=== PATIENT | female | born 1945 | race Caucasian/White ===

== ENCOUNTER → 2017-09-23 07:59 | Outpatient (CLI) | payer MEDICARE, SELFPAY ==
--- NOTE | 2017-09-23 08:05 | MM_ITS ---
MM Dig screening mamm BI w/CAD CAD Screening ORDERING PHYSICIAN : Alis Umana PATIENT AGE: 72 years GENDER: Female COMPARISON: Previous mammograms: January 26, 2017, July 2015, INDICATION: Bilateral breast reduction. No hormones. No urinary complaints. Noncontributory family history. TECHNIQUE: Standard CC and MLO images were obtained. R2 CAD reviewed. FINDINGS: Moderate RIGHT BREAST:The smooth wall round mass at the inferior right breast no significant change since 2017 normal prior 2015 mammogram.. Well-defined smooth wall mass 13.5 mm mm diameter most certainly benign fibroadenoma. . Follow up right mammogram 1 year adequate LEFT BREAST:There is been scant increased enlargement of the solid nodule at the 12-1 o'clock position at the superior left breast. 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 Suggest follow-up ultrasound. This area is been previously evaluated ultrasound and mammography 2014 but given there has slight additional girth the main may want to again offer or Consider proceeding to a ultrasound-guided biopsy of this area above for definitive diagnosis.. This area measures 23 mm AP x 17 mm transverse on today's study. Scant increased girth since prior study Minor density at the medial left breast is stable. .. -------- IMPRESSION: 1. LEFT BREAST: Subtle incremental size & girth of slightly lobulated mass ( most likely fibroadenoma) at the superior right breast, 12:30 position. This now measures up to 2.3 cm. X nearly 1.7 cm , reflecting only scant progression since 2014. . .. Suggest follow-up ultrasound to further evaluate; ... Or consider proceeding directly to ultrasound-guided biopsy given its incremental progression in size since 2014 , now measuring up to 2.3 cm , along with the the slight lobulated character. Offering biopsy the patient so as to fully confirm benign fibroadenoma as suspected if so desired.. 2... RIGHT BREAST.: . Stable 13.5 mm smooth round mass inferior right breast. Can be followed 1 year. BI-RADS Category: 0 Need Additional Imaging Evaluaiton. RECOMMENDED FOLLOW-UP: IMM - IMMEDIATE FOLLOW-UP RECOMMENDED Ultrasound left breast ; or consider ultrasound-guided biopsy suggested (A letter has been sent to the patient regarding results of the study.)
== END ==
PROVIDERS: Family Provider Internal Medicine Adolescent Medicine; PCP Nurse Practitioner Family; Visit Provider Nurse Practitioner Family
DX: Z12.31 Encounter for screening mammogram for malignant neoplasm of breast (principal)
CPT/HCPCS: 77067

== ENCOUNTER → 2017-10-06 14:05 | Outpatient (CLI) | payer MEDICARE, SELFPAY ==
--- NOTE | 2017-10-06 14:10 | US_ITS ---
US breast LT complete ORDERING PHYSICIAN : Alis Umana PATIENT AGE: 72 years GENDER: Female COMPARISON: Previous mammograms: 09/23/2017 & 07/23/2015. Also previous breast ultrasound from December 2014 INDICATION: Breast mass left breast TECHNIQUE: Ultrasound entire left breast including axillary survey LEFT BREAST ULTRASOUND: Including axillary survey Today's study is compared to multiple previous studies.. There is been a long-standing solid mass at the left breast. However it appears incrementally larger butMost likely a slowly progressing benign fibroadenoma.. On today's ultrasound this measures up to 2.2 cm length x 1.4 cm. I believe at this point it does warrant biopsy for further evaluation to fully characterize. Warrants definitive histologic evaluation There is a long thin cyst at 7:00 there is measuring length x 14 mm length x 3 mm AP. Not of concern. Survey of the axillary region reveals no significant appearing findings. Ill-defined benign axillary lymph nodes. The largest 2.35 cm length. IMPRESSION: 2.2 cm solid mass at the 12-1 o'clock position of left breast. -correlates with density on recent mammography Most likely this benign fibroadenoma. However given slowly increasing size & overall appearance would suggest ultrasound-guided biopsy for definitive histologic evaluation. BI-RADS Category: 4 low Suspicious Abnormality-Biopsy Considered-. RECOMMENDED FOLLOW-UP: BIO - BIOPSY RECOMMENDED 4A- this is a low suspicion solid mass, probable fibroadenoma,, but warrants ultrasound-guided biopsy. (A letter has been sent to the patient regarding results of the study.)
== END ==
PROVIDERS: Family Provider Internal Medicine Adolescent Medicine; PCP Nurse Practitioner Family; Visit Provider Nurse Practitioner Family
DX: R92.8 Other abnormal and inconclusive findings on diagnostic imaging of breast (principal)
CPT/HCPCS: 76641

== ENCOUNTER → 2017-11-08 09:45 | Outpatient (CLI) | payer MEDICARE, SELFPAY ==
--- NOTE | 2017-11-08 | MM_ITS ---
US mammotome bx LT, US breast LT complete, US organ site (breast), MM Dig mamm DX unilat LT CAD, postbiopsy ULTRASOUND LEFT BREAST ____ MAMMOTOME VACUUM ASSISTED CORE BIOPSY with clip placement Ordering Physician: Dimitri aMry MD Patient Age: 72 years: Female HISTORY: ITS.REASON: breast lesion progressive enlarging left breast mass. Previous 10/06/2017 ultrasound and previous 09/23/2017 2018 mammogram left breast 4 comparison .. FINDINGS AND PROCEDURE: ---ULTRASOUND LEFT BREAST:------- The initial ultrasound again shows the dominant 2.2 cm length X near 1.4 cm AP cm mass at 12:00 left breast. This hypoechoic solid or semisolid mass is a large with time and was targeted for today's biopsy.... Its position was confirmed. The best route for biopsy was determined by Dr. August and technologist MW. ------ULTRASOUND-GUIDED MAMMOTOME Bx w clip placement left breast ----- Patient was received 10 mg of Valium by mouth prior to this procedure for comfort and mild sedation. Following sterile preparation & local skin anesthesia and deep Xylocaine anesthetic placement we proceeded with subsequently mammotome biopsy Small 2 mm incision was made in the skin by Dr. August after additional local skin anesthesia was placed,. Thereafter deep anesthetic placement posterior to the lesion and about the lesion performed. The 12-gauge mammotome needle was then passed under ultrasound guidance. Biopsy needle placed beneath posterior/ inferior aspect of the nodule and multiple biopsies were obtained removing significant portion/and appear to be removal of majority portion of this this nodule by ultrasound. Patient tolerated procedure well.. At the end of procedure small clip with collagen plug was placed at the biopsy site. *I would note the material obtained was somewhat sticky fibrinoid/mucoid material rather than anticipated homogeneous firm white tissue as typically encounter with intact fibroadenoma. Possibly This is could be a degenerating partially necrotic fibroadenoma possibly versus some other process . All Specimen sent for pathology. 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 No comment regarding fibroadenoma. Thus this may account for the above ) ========= DIAGNOSTIC LEFT MAMMOGRAM-POST BIOPSY Left mammogram 90 degree, MLO and cc views were performed. A smaller lower density ovoid mass at the upper outer quadrant is seen but much much less dense then prebiopsy. We do see a ghostlike residuals of prior mass which likely reflects fluid and/or blood filling this previously biopsied and evacuated void. We do not see as much air or gas here postbiopsy as can be typically encounter with a mammotome biopsy. Only very minimal air along the tract and toward biopsy site... The metallic marker clip is at the anterior inferior margin of this mass. IMPRESSION: 1. The enlarging 2.2 cm length x nearly 1.4 cm AP mass at the 12 o'clock position left breast is identified with initial ultrasound. 2. Subsequent mammotome biopsy performed removing majority of this mass. Metallic marker Clip placed at biopsy region 3. Patient tolerated the procedure overall fairly well 4. Quadrant ultrasound biopsy it appears the vast majority of this mass was removed with stereotactic biopsy.. On the post biopsy mammogram a significant lower density ovoid more ghostlike area persisting at site of previous mass-. Likely reflects reaccumulation of fluid or blood within the evacuated, biopsy mass void. ... However because of this I would suggest 6 month follow-up for ongoing evaluation. 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
== END ==
PROVIDERS: Family Provider Internal Medicine Adolescent Medicine; PCP Nurse Practitioner Family; Visit Provider Surgery
DX: N63.21 Unspecified lump in the left breast, upper outer quadrant
CPT/HCPCS: 19083; 76641; 76942; 77065; 88305; 88342; C2618

== ENCOUNTER → 2017-11-29 15:25 | Outpatient (CLI) | payer MEDICARE, SELFPAY ==
[2017-11-29 15:52] LABS: Basophils % 0.6 % (0.1-2.0); Eosinophils # 0.1 K/mm3 (0.0-0.4); Eosinophils % 1.8 % (0.1-12.0); Hematocrit 45.5 % (37.0-47.0); Lymphocytes # 1.7 K/mm3 (0.7-4.5); Lymphocytes % 27.6 K/mm3 (10-50); Mean Corpuscular HGB Conc 32.9 g/dL (31.8-35.4); Mean Corpuscular Hemoglobin 32.3 pg (27.0-31.2); Mean Corpuscular Volume 97.9 fl (81-99); Mean Platelet Volume 7.1 fl (7.4-10.4); Monocytes # 0.3 K/mm3 (0.1-1.0); Monocytes % 5.6 % (1.7-9.3); Neutrophils # 3.9 K/mm3 (1.8-7.8); Neutrophils % 64.3 % (37.0-80.0); Platelet Count 270 K/mm3 (142-424); Red Blood Count 4.65 M/mm3 (4.20-5.40); Red Cell Distribution Width 15.6 % (11.5-17.5)
[2017-11-29 17:16] LABS: Blood Urea Nitrogen 11 mg/dL (7-18); Carbon Dioxide 31 mmol/L (21.0-32.0); Chloride 102 mmol/L (98-107); Creatinine,Serum 0.76 mg/dL (0.55-1.02); Estimated Glomerular Filt Rate 75 ml/min (>60); GFR (African American) 91 ML/MIN (>60); Glucose 102 mg/dL (74-106); Sodium 142 mmol/L (136-145)
== END ==
PROVIDERS: Visit Provider Surgery
DX: Z01.818 Encounter for other preprocedural examination (principal); N60.92 Unspecified benign mammary dysplasia of left breast
CPT/HCPCS: 36415; 80048; 85025; 93005

== ENCOUNTER → 2018-02-04 07:24 | Outpatient (CLI) | payer MEDICARE, SELFPAY ==
--- NOTE | 2018-02-04 09:30 | CT_ITS ---
CT abdomen pelvis w con CLINICAL INDICATION: Abdominal pain ITS.REASON: ABD PAIN ORDERING PHYSICIAN: Alis Umana PATIENT AGE: 72 years COMPARISON: 12/16/2016 TECHNIQUE: Axial images obtained with sagittal and coronal reformats. All CT scans at the facility use one or more dose reduction, viz: automated exposure control; ma/kV adjustment per patient size (including targeted exams where dose is matched to indication; i.e. head); or iterative reconstruction technique. PROCEDURE: Oral Contrast: Redicat IV Contrast: 75 mL of Isovue-370. FINDINGS: There are mild atelectatic or fibrotic changes in the lung bases. A 4 mm noncalcified nodule present in the right lung base posteriorly unchanged. There are minimal atelectatic or fibrotic changes in the left lung base. The liver, spleen, adrenal glands, and pancreas have an unremarkable appearance. There has been a prior cholecystectomy without ductal dilatation. There is a 6 mm nonobstructing stone in the lower pole the left kidney and there are 2 3-mm nonobstructing stones in the lower pole the right kidney. There is mild left hydronephrosis and hydroureter secondary to a 6 mm stone at the ureterovesical junction. There is some slight increased soft tissue density at the trigone of the bladder on the left. This could be due to some edema from the stone. Suggest follow-up as neoplasm could have a similar appearance. No intestinal obstruction or free air. There is mild thickening of the cecum and there is mild thickening of the transverse colon both of these areas could be due to nondistention or inflammation. No pelvic mass abnormal fluid collection or focal inflammatory change. There are degenerative changes in the lumbar spine with mild lumbar scoliosis convex left. Small umbilical hernia containing fat. IMPRESSION: 1. 6 mm left ureterovesical junction stone causing mild left hydroureteronephrosis with bilateral renal calculi. 2. There is mild thickening of the trigone of the bladder on the left at the area of the stone. This could be due to inflammation from the stone. Neoplasm however could have a similar appearance and follow-up is recommended 3. Thickening of the cecum and transverse colon which may be due to nondistention or colitis.
--- NOTE | 2018-02-04 09:56 | HMH.ITSHM ---
SPIRONOLACTONE RANOLAZINE LOVASTATIN LEVOTHYROXINE LAMOTRIGINE FUROSEMIDE FAMOTIDINE ESCITALOPRAM ALPRAZOLAM PROPRANOLOL IBUPROFEN ASA AMITRIPTYLINE
== END ==
PROVIDERS: Family Provider Internal Medicine Adolescent Medicine; PCP Nurse Practitioner Family; Visit Provider Nurse Practitioner Family
DX: R10.84 Generalized abdominal pain (principal)
CPT/HCPCS: 74177; Q9967

== ENCOUNTER → 2018-03-25 10:37 | Outpatient (CLI) | payer MEDICARE, SELFPAY | PROVIDERS: Family Provider Internal Medicine Adolescent Medicine; PCP Nurse Practitioner Family; Visit Provider Internal Medicine Cardiovascular Disease | DX: R06.00 Dyspnea, unspecified (principal); R94.31 Abnormal electrocardiogram [ECG] [EKG]; Z95.1 Presence of aortocoronary bypass graft; I25.119 Atherosclerotic heart disease of native coronary artery with unspecified angina pectoris | CPT/HCPCS: 36415; 83880 ==

== ENCOUNTER → 2018-03-30 14:41 | Outpatient (CLI) | payer MEDICARE, SELFPAY ==
--- NOTE | 2018-03-30 14:42 | CT_ITS ---
CT angio chest Ordering Physician: Al Shultz MD Patient Age: 72 years: Female HISTORY: ITS.REASON: cp/soa . TECHNIQUE: Helical CT scanning performed through the chest following bolus administration of 70 cc Isovue-370 followed x 40 mL normal saline.\ Thickened axial images as well as thick slab mipp sagittal and coronal reconstructions performed on CT workstation. -... CTA or... [address] scans at this facility used one or more dose reduction techniques , viz: automatic exposure control, ma/Kv adjustment per patient's size, (including targeted exam where dose matched to the indication; i.e. head); or iterative reconstruction technique COMPARISON :Previous CT chest 11/29/2015 FINDINGS Right breast: Round density medial right breast now measuring up to 14 mm. This is incrementally larger than on 2016 at which time it measured just less than 1 cm.. At superior right breast is a 12 mm density which appears similar. 09 November 2015. Left breast: mass measuring 3.1 cm diameter. May reflect residual hematoma from the left breast lumpectomy November 2017 Lungs. Appear clear with no acute disease. Scant pleural-parenchymal scarring from previous pneumonia particularly at the right base accounts for some minimal wispy pleural-parenchymal densities at the posterior right chest.. Mediastinum. No significant findings. Coronary artery calcification. No pericardial effusion. Heart upper normal size. Tiny 4 mm nodule pleural-based at the posterior sulcus on right. Can be followed in one year Minor linear atelectasis scarring most evident towards RLL likely sequela from previous pneumonia here 2015 Pulmonary arteries. No evidence of pulmonary embolism. Good visualization pulmonary arteries.. . No osseous findings of current significance. Anterior marginal osteophytes mid and lower T-spine similar to previous study IMPRESSION . 1.. No evidence of pulmonary embolism. Good quality study Lungs clear no active disease. No mediastinal mass or pathology coronary artery calcification. .
[2018-03-30 15:17] LABS: Blood Urea Nitrogen 7 mg/dL (7-18); Creatinine,Serum 0.84 mg/dL (0.55-1.02); Estimated Glomerular Filt Rate 67 ml/min (>60); GFR (African American) 81 ML/MIN (>60)
== END ==
PROVIDERS: Family Provider Internal Medicine Adolescent Medicine; PCP Nurse Practitioner Family; Visit Provider Internal Medicine Cardiovascular Disease
DX: R07.9 Chest pain, unspecified (principal); R06.00 Dyspnea, unspecified; R94.31 Abnormal electrocardiogram [ECG] [EKG]; I25.10 Atherosclerotic heart disease of native coronary artery without angina pectoris; I20.9 Angina pectoris, unspecified; Z95.1 Presence of aortocoronary bypass graft
CPT/HCPCS: 36415; 71275; 82565; 84520; Q9967

== ENCOUNTER → 2018-04-01 10:32 | Outpatient (CLI) | payer MEDICARE, SELFPAY ==
--- NOTE | 2018-04-01 10:34 | CA_ITS ---
PROCEDURE: 2-D M-mode and color Doppler study INDICATIONS FOR THE TEST: Chest painX COPD Heart Murmur Tobacco SmokingEX Palpitations Fatigue Syncope Edema HypertensionXDiabetes Mellitus Rheumatic Fever SOBXDOE Obesity HyperlipidemiaX Family History HD Additional History ABN EKG,CABG 1996 TDS BODY HABITUS PATIENT INFORMATION HEIGHT: 65 WEIGHT:224 GENDER: Female B/P:123/46 2-D/M-MODE INTERPRETATION: 2-D MEASUREMENTS OBSERVED VALUES IN CMS Right Ventricular Dimension (RVDd) 2.6 Interventricular Septum (Thickness)(IVsd) 1.0 Left Ventricular Internal Dimensions(LVIDd) 5.0 Left Ventricular Posterior Wall (Thickness)(LVPWd) 1.0 Aortic Root 2.5 Aortic Cusp Separation 2.0 Left Atrial Dimensions (LAD) 4.0 2D 1. Technically difficult study because of the patient's factor and poor acoustic windows. 2. Left atrium is mildly enlarged, left ventricle is normal size, there is mild concentric left ventricular hypertrophy, visually estimated ejection fraction approximately 55% with no obvious regional wall motion abnormality, endocardial surfaces are poorly visualized. 3. The right atrium and right ventricle are mildly enlarged with normal contractility. 4. The aortic valve is minimally thickened and calcified consistent display mobility. 5. The mitral and tricuspid valvular minimally thickened. 6. The pulmonic valve is poorly visualized. 7. No significant pericardial effusion noted. DOPPLER INTERROGATION: Doppler interrogation of the aortic, mitral and tricuspid valve reveals presence of mild to moderate mitral and tricuspid regurgitation, calculated right ventricular systolic pressure is 47 mmHg consistent with moderate pulmonary hypertension, grade 2 diastolic dysfunction seen. Tissue Doppler evidence of raised left atrial pressure. CONCLUSION: 1. Biatrial enlargement, normal left ventricular size, mild concentric left ventricular hypertrophy, visually estimated ejection fraction approximately 55% with no obvious regional wall motion abnormality, grade 2 diastolic dysfunction seen with tissue Doppler evidence of raised left atrial pressure. 2. Mild to moderate mitral and tricuspid regurgitation, calculated right ventricular systolic pressure is 47 mmHg consistent with moderate pulmonary hypertension. 3. No significant pericardial effusion noted.
== END ==
PROVIDERS: Family Provider Internal Medicine Adolescent Medicine; PCP Nurse Practitioner Family; Visit Provider Internal Medicine Cardiovascular Disease
DX: R94.31 Abnormal electrocardiogram [ECG] [EKG] (principal); I25.10 Atherosclerotic heart disease of native coronary artery without angina pectoris; R06.00 Dyspnea, unspecified; I20.9 Angina pectoris, unspecified; Z95.1 Presence of aortocoronary bypass graft
CPT/HCPCS: 93306

== ENCOUNTER → 2018-04-14 12:43 | Outpatient (CLI) | payer MEDICARE, SELFPAY | PROVIDERS: PCP Nurse Practitioner Family; Visit Provider Physician Assistant | DX: D05.12 Intraductal carcinoma in situ of left breast (principal); I25.118 Atherosclerotic heart disease of native coronary artery with other forms of angina pectoris; I27.20 Pulmonary hypertension, unspecified; I51.9 Heart disease, unspecified; R06.02 Shortness of breath; R93.1 Abnormal findings on diagnostic imaging of heart and coronary circulation; R94.31 Abnormal electrocardiogram [ECG] [EKG]; Z95.1 Presence of aortocoronary bypass graft | CPT/HCPCS: 93225 ==

== ENCOUNTER → 2018-05-09 11:14 | Outpatient (CLI) | payer MEDICARE, SELFPAY ==
[2018-05-10 15:28] LABS: Anion Gap 11.7 mEq/L (5-15); Blood Urea Nitrogen 9 mg/dL (7-18); Calcium 8.4 mg/dL (8.5-10.1); Carbon Dioxide 31 mmol/L (21.0-32.0); Chloride 103 mmol/L (98-107); Creatinine,Serum 0.69 mg/dL (0.55-1.02); Estimated Glomerular Filt Rate 84 ml/min (>60); GFR (African American) 102 ML/MIN (>60); Glucose 108 mg/dL (74-106); Magnesium 2.1 mg/dL (1.4-2.2); Potassium 3.7 mmoL/L (3.5-5.1); Sodium 142 mmol/L (136-145)
== END ==
PROVIDERS: Family Provider Internal Medicine Adolescent Medicine; PCP Nurse Practitioner Family; Visit Provider Internal Medicine Cardiovascular Disease
DX: D05.12 Intraductal carcinoma in situ of left breast (principal); E78.4 Other hyperlipidemia; I20.9 Angina pectoris, unspecified; I25.118 Atherosclerotic heart disease of native coronary artery with other forms of angina pectoris; R00.2 Palpitations; R06.02 Shortness of breath; Z95.1 Presence of aortocoronary bypass graft
CPT/HCPCS: 36415; 80048; 83735

== ENCOUNTER → 2018-06-13 12:47 | Outpatient (CLI) | payer MEDICARE, SELFPAY ==
--- NOTE | 2018-06-13 12:51 | MM_ITS ---
MM Dig mamm DX unilat LT CAD, US breast LT complete Redictation Ordering Physician: Dimitri Mary MD Patient Age: 73 years Female COMPARISON: January 2017, & September 2017 bilateral mammogram. November 2017 left mammogram and needle localization Ultrasound left breast there were December 2014 INDICATION: Follow-up post lumpectomy November 2017 of nodule with atypical features superior left breast . Follow-up of small second area of density medial left breast. DIAGNOSTIC MAMMOGRAM left breast including spot views TECHNIQUE: MLO cc 90 degree view left breast along with spot CC and MLO view of the density at medial inferior breast \ FINDINGS Lumpectomy site superior left breast. Several vascular clips. Ovoid hypoechoic appearance centrally on reflecting fatty scar or area of fat necrosis centered minimal density. These reflect compatible with lumpectomy postsurgical changes earlier this year.. Bilateral follow-up in 6 months to resume annual schedule suggested The Small just roughly 10 mm mm density at medial left breast is again observed and was one of the reasons for this 6 month follow-up. This was noted on Kay and needle localization films... Slightly more evident on 2018 studies versus prior studies.. This correlates with with a cyst at 7:00 seen on subsequent ultrasound ========= ULTRASOUND LEFT BREAST including axillary survey Entire breast was image including axillary survey At 7:00 there is a 1.25 cm x 0.4 cm cyst which would correlate with the density noted on mammography. It was seen in previous studies from June 2018 slight increased size since that time but has benign cystic character and can be followed safely. At 12:00 of there is post surgical changes at lumpectomy site. Likely area of developing fat necrosis. Central slightly hyperechoic ovoid fatty component measuring just just over 2 cm maximally which is surrounded by some minimal residual hypoechoic healing fibrosis and/or fluid. . Reflecting the postsurgical changes from earlier this year IMPRESSION:.. ( Left mammogram & ultrasound) 1. Interval lumpectomy November 2017 for atypical cells at/fibroadenoma superior left breast.. Notable residual postsurgical changes on ultrasound and mammography 2. A second small 1 cm density at medial left breast again noted. It is benign cyst at 7-8 o'clock position on subsequent ultrasound. & Not of concern. Can be followed 3. This recommend resuming bilateral annual mammography schedule 6 months BI-RADS Category: 2 Benign Finding(s) RECOMMENDED FOLLOW-UP: 6M 6 MONTH FOLLOW-UP 2 resume annual scheduled A letter has been sent to the patient regarding results of the study.)
== END ==
PROVIDERS: PCP Nurse Practitioner Family; Visit Provider Surgery
DX: D05.12 Intraductal carcinoma in situ of left breast (principal); N60.92 Unspecified benign mammary dysplasia of left breast
CPT/HCPCS: 76641; 77065

== ENCOUNTER → 2018-07-08 11:01 | Outpatient (CLI) | payer MEDICARE, SELFPAY | PROVIDERS: PCP Nurse Practitioner Family; Visit Provider Internal Medicine Cardiovascular Disease | DX: R55 Syncope and collapse (principal); R53.83 Other fatigue; R94.31 Abnormal electrocardiogram [ECG] [EKG] | CPT/HCPCS: 93270 ==

== ENCOUNTER → 2018-07-11 09:36 | Outpatient (CLI) | payer MEDICARE, SELFPAY ==
--- NOTE | 2018-07-11 09:39 | FL_ITS ---
EXAM: Barium swallow/esophagram. INDICATION: ITS.REASON: DYSPHAGIA ORDERING PHYSICIAN: Alis Umana PATIENT AGE: 73 years COMPARISON: None TECHNIQUE: In the upright position the patient was observed to swallow barium in both the AP and lateral view. The cervical esophagus was examined under fluoroscopy with images obtained. The patient was then placed prone in the right anterior oblique position and was observed to swallow barium with Valsalva technique . FLUOROSCOPY TIME: 1 minute and 3 seconds FINDINGS: There was some penetration/minimal aspiration into the upper trachea. There was normal peristalsis. No filling defects or mucosal abnormalities. No masses or strictures. IMPRESSION: 1. Minimal tracheal aspiration. 2. Otherwise negative barium swallow
== END ==
PROVIDERS: PCP Nurse Practitioner Family; Visit Provider Nurse Practitioner Family
DX: R13.10 Dysphagia, unspecified (principal)
CPT/HCPCS: 74220

== ENCOUNTER → 2018-07-18 07:19 | Outpatient (CLI) | payer MEDICARE, SELFPAY ==
--- NOTE | 2018-07-18 07:22 | NM_ITS ---
History and Indications: Coronary artery disease, bypass surgery, hyperlipidemia, chest pain, shortness of breath, fatigue Procedure: Patient received a 0.4 mg of intravenous Lexiscan, resting heart rate was 56 bpm resting blood pressure 110/62, with Lexiscan maximum heart rate achieved was 83 bpm which is less than 85% of the maximum predicted heart rate and a blood pressure was 89/42. With Lexiscan patient complained of mild chest pressure. Electrocardiogram: Resting electrocardiogram showed sinus bradycardia nonspecific ST-T changes, with Lexiscan occasional premature ventricular complexes seen, less than 1.5 mm segment depression noted from the baseline EKG. The EKG portion of the Lexiscan Myoview is nondiagnostic. Cardiac stress and resting SPECT images: Cardiac stress and resting SPECT images were obtained using technetium 99 Myoview 28.9 mCi stress and 10.7 mCi at rest, gated SPECT further analysis of segmental wall motion and calculation of the ejection fraction also done. Cardiac stress and resting SPECT images show a mild reversible defect in the anterior wall with perfusion of the apex being normal in both stress and rest images and normal contractility in the gated SPECT is likely secondary to soft tissue attenuation from the breast rather than myocardial ischemia. Computer derived ejection fraction is over 65% with no regional wall motion abnormality, right ventricle is normal size and contractility. Conclusion: 1. The EKG portion of the Lexiscan Myoview is nondiagnostic. 2. No scintigraphic evidence of reversible ischemia seen, greater derived ejection fraction is over 65% with no regional wall motion abnormality, right ventricle is normal size and contractility. 3. Normal Lexiscan Myoview study.
--- NOTE | 2018-07-18 07:45 | HMH.ITSHM ---
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 []LIPITOR RENEXA LASIX LEVOTHYROXINE ASA LEXAPRO MOMOTRIGEN POTASSIUM PRILOSEC XANEX AMITRIPTYLINE
== END ==
PROVIDERS: PCP Nurse Practitioner Family; Visit Provider Internal Medicine Cardiovascular Disease
DX: R53.83 Other fatigue (principal); R55 Syncope and collapse; R94.31 Abnormal electrocardiogram [ECG] [EKG]
CPT/HCPCS: 78452; 93017; A9502; J2785

== ENCOUNTER → 2018-07-25 12:10 | Outpatient (CLI) | payer MEDICARE, SELFPAY ==
--- NOTE | 2018-07-25 12:14 | FL_ITS ---
FL barium swallow modified INDICATION: ITS.REASON: DYSPHAGIS,ODYNOPHAGIA. This patient voice changes. TECHNIQUE & FINDINGS: Study performed conjunction with speech pathologist Marisela hammond. 3 minutes 2 seconds seconds fluoroscopy Patient study the lateral projection with video esophagram recording. Various barium consistencies utilized to study swallowing mechanism. Lab Courier film revealed calcification origin cartilages.. Normal thickness epiglottis.: .. Thin barium from cup, and with straw: Penetration into the laryngeal vestibule with thin liquids from cup and straw. Penetration Persistent with with chin tuck. . Pudding satisfactory swallowing. , Mechanical soft barium on cereal bar:. Good strength the swallowing. No residualThis was followed by a thin barium Wash However with this in the barium pill the patient did complain of discomfort at the junction of cervical and thoracic esophagus there is a brief delay at this level but probably continued. No marginal osteophytes no evident restriction. No web. No Zenker's normal minimal cricopharyngeus muscle. But if pain persist or may warrant barium esophagram study or endoscopy. Barium pill was ingested with thin barium wash & passed with only brief transient delay at cervica thoracic esophagus junction region .. ( I have reviewed a CT 03/30/2018 and see no weightbearing subclavian or other features that could contribute to the symptoms for the cervical esophagus, lower cervical esophagus upper thoracic esophagus unremarkable by CT no significant marginal osteophyte either.] IMPRESSION:. Recurrent penetration is seen within thin barium consistency . The patient complains of discomfort at the junction of cervical thoracic esophagus. However we see no restricting features or anatomy on today's lateral view of this region. Only very slightly transit delayed through this region observed. Please see review recommendations from speech pathology
== END ==
PROVIDERS: PCP Nurse Practitioner Family; Visit Provider Nurse Practitioner Family
DX: R13.10 Dysphagia, unspecified (principal)
CPT/HCPCS: 70371; 92611

== ENCOUNTER 2018-08-19 08:57 | Outpatient (RCR) | payer MEDICARE, SELFPAY | END 2018-08-19 12:00 | disposition home or self-care (01) | LOC: ST 08:57 | PROVIDERS: Visit Provider Nurse Practitioner Family | DX: R13.12 Dysphagia, oropharyngeal phase (principal) | CPT/HCPCS: 92610 ==

== ENCOUNTER → 2018-11-15 12:32 | Outpatient (CLI) | payer MEDICARE, SELFPAY | PROVIDERS: PCP Nurse Practitioner Family; Visit Provider Physician Assistant | DX: E78.5 Hyperlipidemia, unspecified (principal); I10 Essential (primary) hypertension; I25.118 Atherosclerotic heart disease of native coronary artery with other forms of angina pectoris; I48.91 Unspecified atrial fibrillation; R00.2 Palpitations; R06.02 Shortness of breath; R51 Headache; Z95.1 Presence of aortocoronary bypass graft | CPT/HCPCS: 93270 ==

== ENCOUNTER → 2019-01-10 09:45 | Outpatient (CLI) | payer MEDICARE, SELFPAY ==
[2019-01-10 10:53] VITALS: PULSE 71
== END ==
PROVIDERS: PCP Nurse Practitioner Family; Visit Provider Nurse Practitioner Family
DX: R06.00 Dyspnea, unspecified (principal); I48.91 Unspecified atrial fibrillation; I25.10 Atherosclerotic heart disease of native coronary artery without angina pectoris; E78.5 Hyperlipidemia, unspecified; Z95.1 Presence of aortocoronary bypass graft
CPT/HCPCS: 94060; 94640; 94726; 94729

== ENCOUNTER → 2019-01-20 12:39 | Outpatient (CLI) | payer MEDICARE, SELFPAY ==
--- NOTE | 2019-01-20 12:41 | US_ITS ---
MM Dig mamm BI DX w/CAD, US breast RT complete, US breast LT complete INDICATION: 6 month follow-up ORDERING PHYSICIAN: Dimitri Mary MD PATIENT AGE: 73 years COMPARISON: 06/13/2018, 09/23/2017, 07/23/2015 TECHNIQUE: Standard images performed along with spot compression views of the left breast and bilateral breast ultrasound FINDINGS: There is evidence fibroglandular tissue. Left breast: There are postsurgical changes in the 1:00 region of the left breast with some architectural distortion. The previously noted area of increased density is somewhat less apparent consistent with postsurgical scarring. Clips are present in this region. There is some retraction of the overlying skin from the scarring. There is a stable asymmetric density in the medial aspect of the left breast overall not significant changed. Left breast ultrasound: At the 1:00 region there is an oval 3 x 1.8 x 1 cm area of consistent with postsurgical change/hematoma. Previously there was some decrease echogenicity around this region which is. There is a 1 x 0.8 cm cyst at 7:00 unchanged corresponding to the asymmetric density noted on the mammogram. Right breast: There is a well-circumscribed 1.5 x 1.4 cm nodule in the lower inner aspect of the right breast which is not significantly changed. Right breast ultrasound: There is a shadowing nodule present at 12:00 hypoechoic in nature measuring 5 mm. This nodule does not appear significant change however, has a suspicious sonographic appearance with its hypoechogenicity and shadowing margins. In addition, there is a complex cystic lesion at 3:00 which is not significant change corresponding to the well circumscribed mammographic abnormality. Suggest ultrasound-guided mammotome biopsy of the hypoechoic nodule at 12:00 IMPRESSION: 1. There are postsurgical changes in the left breast which appear stable. 2. There is a sonographically noted suspicious nodule at 12:00 in the right breast with prominent posterior acoustical shadowing hypoechoic with ill-defined margins. Ultrasound-guided mammotome biopsy recommended BI-RADS Category: 4 Suspicious Abnormality-Biopsy Considered RECOMMENDED FOLLOW-UP: BIO - BIOPSY RECOMMENDED (A letter has been sent to the patient regarding results of the study.)
== END ==
PROVIDERS: PCP Nurse Practitioner Family; Visit Provider Surgery
DX: N60.92 Unspecified benign mammary dysplasia of left breast (principal); D05.12 Intraductal carcinoma in situ of left breast
CPT/HCPCS: 76641; 77066

== ENCOUNTER → 2019-01-24 14:21 | Outpatient (CLI) | payer MEDICARE, SELFPAY ==
--- NOTE | 2019-01-24 14:31 | XR_ITS ---
XR chest 2V HISTORY: ITS.REASON: shortness of breath ORDERING PHYSICIAN: Heath Forbes MD PATIENT AGE: 73 years COMPARISON: 11/21/2018 FINDINGS: Prior CABG. Bipolar pacemaker is present from left subclavian approach. There is scarring in the left lung base. The remaining lungs are clear. No acute bony findings. IMPRESSION: No change with no acute finding
== END ==
PROVIDERS: PCP Nurse Practitioner Family; Visit Provider Internal Medicine
DX: I20.9 Angina pectoris, unspecified (principal); I48.2 Chronic atrial fibrillation; R06.02 Shortness of breath; Z95.0 Presence of cardiac pacemaker
CPT/HCPCS: 71046

== ENCOUNTER → 2019-02-08 12:08 | Outpatient (CLI) | payer MEDICARE, SELFPAY ==
--- NOTE | 2019-02-08 12:15 | US_ITS ---
US mammotome bx RT, MM clip placement RT INDICATION: Suspicious right breast nodule ORDERING PHYSICIAN: Dimitri Mary MD PATIENT AGE: 73 years COMPARISON: 01/20/2019 TECHNIQUE: Following obtaining informed consent and timeout procedure under aseptic conditions and local anesthesia with 1% buffered lidocaine and deeper anesthesia with lidocaine with epinephrine, mammotomy needle was inserted in the appropriate positioning and multiple mammotomy cores biopsies were obtained. A nonferromagnetic clip was then placed. The patient tolerated the procedure well without evidence of immediate complications. Postbiopsy mammogram was performed demonstrating the clip in place with post biopsy changes in the 12:00 region of the right breast. Pathology: Fibrous scar tissue with hemosiderin and foreign body reaction consistent with ruptured cyst or injury site. Proliferative breast disease. Negative for atypical hyperplasia or malignancy IMPRESSION: Successful sonographic guided mammotome biopsy of the right breast showing benign findings. Recommendations: 6 month mammographic and sonographic follow-up per routine protocol
== END ==
PROVIDERS: PCP Nurse Practitioner Family; Visit Provider Surgery
DX: R92.8 Other abnormal and inconclusive findings on diagnostic imaging of breast
CPT/HCPCS: 19083; 77065; 88305; C2618

== ENCOUNTER → 2019-07-19 14:35 | Outpatient (CLI) | payer MEDICARE, SELFPAY | PROVIDERS: Visit Provider Nurse Practitioner Family | DX: M79.662 Pain in left lower leg (principal) | CPT/HCPCS: 87070; 87205 ==

== ENCOUNTER 2019-07-26 14:00 | Outpatient (RCR) | payer MEDICARE, SELFPAY | END 2019-07-26 14:05 | disposition home or self-care (01) | LOC: PT 14:00 | PROVIDERS: PCP Nurse Practitioner Family; Visit Provider Nurse Practitioner Family | DX: S81.802D Unspecified open wound, left lower leg, subsequent encounter (principal) | CPT/HCPCS: 97162; 97597 ==

== ENCOUNTER → 2019-10-10 12:42 | Outpatient (CLI) | payer MEDICARE, SELFPAY ==
--- NOTE | 2019-10-10 12:42 | US_ITS ---
PROCEDURE: US BREAST LT COMPLETE CLINICAL INDICATION: 6 mo fu COMPARISON: BREASTLT US breast LT complete from 06/13/2018 MM DIG MAMM BI DX W/CAD from 10/10/2019 FINDINGS: The stable appearing isoechoic oval lesion 12 o'clock position near the nipple consistent with scarring from the previous lumpectomy. There is a hypoechoic oval lesion at the 7 o'clock position near the nipple measuring 0.7 by 0.4 x 1.2 cm. There appear to be faint internal echoes and there is no acoustic enhancement. This likely represents a complex cyst with internal debris. It is basically unchanged in size and overall appearance from the previous ultrasound exam 06/13/2018 IMPRESSION: Stable postlumpectomy scarring and stable benign-appearing cystic lesion as described and no additional ultrasound follow-up is indicated. Dictated by: Dr. Fox Lott MD 10/13/2019 13:[address] Fox Lott MD in [place] 10/13/2019 13:14
--- NOTE | 2019-10-10 12:42 | US_ITS ---
PROCEDURE: US BREAST RT COMPLETE CLINICAL INDICATION: 6 mo fu COMPARISON: US BREAST LT COMPLETE from 10/10/2019 FINDINGS: There is an oval hypoechoic cystic-appearing lesion at the 3 o'clock position near the nipple measuring 1.3 by 1.2 x 1.2 cm showing acoustic enhancement and this is consistent with a benign cyst. There are 2 normal appearing nodes in the axilla.. IMPRESSION: Benign-appearing cystic lesion 3 o'clock position which corresponds in size and location to the stable dominant lesion on the mammogram. No additional follow-up is indicated unless this lesion becomes symptomatic. Dictated by: Dr. Fox Lott MD 10/13/2019 13:[address] Fox Lott MD in [place] 10/13/2019 13:19
--- NOTE | 2019-10-10 12:42 | MM_ITS ---
PROCEDURE: MM DIG MAMM BI DX W/CAD Digital Breast Tomosynthesis Included CLINICAL INDICATION: 6 mo fu Post biopsy right breast. COMPARISON: DXLT MM Dig mamm DX unilat LT CAD from 06/13/2018 DIG MAMM-DX BETTY from 01/20/2019 MM clip placement RT from 02/08/2019 TECHNIQUE: Standard CC and MLO images and 3D Tomosynthesis was obtained. R2 CAD reviewed. FINDINGS: Again noted are post lumpectomy changes upper outer quadrant left breast. There has been some interval contraction of the scar since previous some left mammogram 06/13/2018. Surgical clips are again seen at the lumpectomy site. Mild scattered fibroglandular densities are seen in the right breast. The biopsy clip is again seen at the site of the recent biopsy. Minimal adjacent post biopsy scarring is seen. There is a stable benign-appearing spherical lesion lower central portion right breast. There is minimal arterial calcification left breast. There is no new or suspicious lesion in either breast and no suspicious microcalcifications. IMPRESSION: Fibrofatty parenchyma with stable benign-appearing spherical lesion and biopsy clip right breast and stable post lumpectomy scarring left breast BI-RAD Category: 2 Benign Finding(s) FOLLOW-UP: 1YR 1 Year Follow-up (A letter has been sent to the patient regarding results of the study.) Dictated by: Dr. Fox Lott MD 10/13/2019 10:[address] Fox Lott MD in [place] 10/13/2019 10:38
== END ==
PROVIDERS: PCP Nurse Practitioner Family; Visit Provider Surgery
DX: N60.02 Solitary cyst of left breast (principal); R92.8 Other abnormal and inconclusive findings on diagnostic imaging of breast
CPT/HCPCS: 76641; 77062; 77066; G0279

== ENCOUNTER → 2020-12-19 12:46 | Outpatient (CLI) | payer MEDICARE, SELFPAY ==
--- NOTE | 2020-12-19 | US_ITS ---
PROCEDURE: MM DIG MAMM BI DX W/CAD Digital Breast Tomosynthesis Included CLINICAL INDICATION: lt breast nodule COMPARISON: MG MM DIG MAMM BI DX W/CAD from 10/10/2019 TECHNIQUE: Standard CC and MLO images and 3D Tomosynthesis was obtained. R2 CAD reviewed. Spot compression images of the left breast were obtained. FINDINGS: The breasts are composed of scattered fibroglandular tissue. Stereotactic biopsy clip noted in the right upper central breast. Nodular density noted in the right lower inner quadrant is again noted, demonstrates no significant interval change. Post surgical architectural distortion is noted in the left upper outer quadrant. There are new coarse calcifications noted within the excision of biopsy site without significant associated mass. Multiple surgical clips are noted in the left upper outer quadrant. No focal suspicious masses, or calcification noted. Ultrasound demonstrates corresponding focal area of scar with calcifications. No suspicious mass lesions are noted. IMPRESSION: Postsurgical changes in the left breast. BI-RAD Category: 3 Probably Benign Finding Short Term Follow-up FOLLOW-UP: 3 month Follow-up (A letter has been sent to the patient regarding results of the study.) Dictated by: Orquidea Gerard 12/19/2020 17:21 Orquidea Gerard in [place] 12/19/2020 17:22
== END ==
PROVIDERS: PCP Family Medicine; Visit Provider Nurse Practitioner Family
DX: R92.8 Other abnormal and inconclusive findings on diagnostic imaging of breast (principal); N63.20 Unspecified lump in the left breast, unspecified quadrant
CPT/HCPCS: 76641; 77062; 77066; G0279

== ENCOUNTER 2021-01-28 12:23 | Emergency (ER) | payer MEDICARE, SELFPAY ==
--- NOTE | 2021-01-28 12:22 | ECG_ITS ---
APPROVED REPORT Exam: Resting ECG HR:68 bpm ECG Measurements Heart Rate 68 AXES NE 228 P 90 QRSd 94 QRS 41 QT 424 T 150 QTc 450 Conclusion Sinus rhythm with 1st degree AV block ST & T wave abnormality, consider anterolateral ischemia Abnormal ECG Electronically signed by : Nelson Gonzalez, 01/29/2021 17:39:25
[2021-01-28 12:23] VITALS: BP 110/71; PULSE 69; RESP 17; O2SAT 95; BMI 32.1
--- NOTE | 2021-01-28 12:36 | XR_ITS ---
PROCEDURE: XR CHEST 2V CLINICAL HISTORY: chest pressure COMPARISON: CR CXR1 CHEST-PORTABLE from 01/11/[address] angio chest from 03/30/2018 CR CXR2 XR chest AP from 10/16/2018 CR CXR1VP XR chest portable from 11/21/2018 FINDINGS: There has been a prior median sternotomy. Bipolar pacemaker is present from left subclavian approach. There are mild atelectatic or fibrotic changes in the left lung base. Lungs are otherwise clear. No acute bony abnormalities. IMPRESSION: No acute findings. Dictated by: Torey Castillo MD 01/28/2021 14:51 Torey Castillo MD in [place] 01/28/2021 14:51
--- NOTE | 2021-01-28 12:44 | HMH.EDGENADL ---
ED Disposition Clinical Impression: Anxiety state Chest pain Qualifiers: Chest pain type: unspecified Qualified Code(s): R07.9 - Chest pain, unspecified Disposition: Home, Self-Care Condition on Discharge: Good Instructions: DI for Chest Pain, DI for Anxiety -- Adult Additional Instructions: See Alis Umana in the office tomorrow morning as scheduled to get your Xanax situation resolved. Follow-up with Dr. Forbes in the office, call for appointment. Additional instructions for CHEST PAIN: See your physician as soon as possible for further evaluation. Return immediately if worsening chest pain, vomiting, shortness of breath, fever, coughing of blood. Referrals: Alis Umana [Primary Care Provider] - Heath Forbes MD [Staff Physician] - - Critical Care Critical Care Time: No Attestation: On 01/28/21, the high probability of a clinically significant, sudden or life threatening deterioration of the following system(s) required my full and direct attention, intervention and personal management. The time I documented below is in addition to time spent performing reported procedures but includes the following listed in this critical care notation. Medical Decision Making - Brian Inquiry Pt receiving controlled substance: Yes Brian was queried for this patient: Yes (Xanax as prescribed by Alis Umana, PCP) Risks and benefits of using a controlled substance: were discussed with pt by me Vital Signs: 01/28/21 12:23 01/28/21 13:01 01/28/21 14:00 Pulse Rate 68 68 Pulse Rate [Left Radial] 69 Respiratory Rate 17 17 19 Blood Pressure 104/58 L 94/60 L Blood Pressure [Right Arm] 110/71 Blood Pressure Mean 73 67 Blood Pressure Mean [Right Arm] 84 Blood Pressure Source [Right Arm] Automatic Cuff Blood Pressure Position [Right Arm] Sitting 02 Sat by Pulse Oximetry 95 96 Oxygen Delivery Method Room Air - Lab Data Lab Results 01/28/21 12:25: WBC 6.8, RBC 4.16 L, Hgb 13.1, Hct 39.1, MCV 94.0, MCH 31.5 H, MCHC 33.5, RDW 16.2, Plt Count 240, MPV 7.4, Neut % (Auto) 74.8, Lymph % (Auto) 17.9, [place] % (Auto) 5.8, Eos % (Auto) 0.8, Baso % (Auto) 0.7, Neut # (Auto) 5.1, Lymph # (Auto) 1.2, [place] # (Auto) 0.4, Eos # (Auto) 0.1, Baso # (Auto) 0.0 01/28/21 12:25: Sodium 143, Potassium 3.6, Chloride 106, Carbon Dioxide 24, Anion Gap 16.6 H, BUN 9, Creatinine 0.70, Estimated Creat Clear 69, Estimated GFR 82, Est GFR ( Amer) 99, Glucose 150 H, Calcium 8.6, Troponin I < 0.01 01/28/21 16:25: Troponin I < 0.01 Result diagrams: 01/28/21 12:25 01/28/21 12:25 Orders (Tests/Meds): ED MEDICATIONS Discontinued Medications Generic Name Dose Route Start Last Admin Trade Name Freq PRN Reason Stop Dose Admin Alprazolam 1 mg 01/28/21 13:10 01/28/21 13:20 Alprazolam 1mg Tablet PO 01/28/21 13:11 1 mg ONCE ONE Administration Aspirin 324 mg 01/28/21 12:35 01/28/21 12:41 Aspirin 81mg Chewable Tablet PO 01/28/21 12:36 324 mg ONCE ONE Administration ORDERS Category Date Time Status Consult to Cardiology [CONS] Routine Cons 01/28/21 13:09 Active Troponin I Q3H Lab 01/28/21 18:45 Ordered - ECG Data Tracing #1 EKG interpreted by Regulo Iyer MD: Rhythm: sinus Rate: 68 Eunice: normal Ectopy: none Conduction: First-degree AV block ST Segment Changes: Nonspecific anterior and lateral T Wave Changes: Nonspecific anterior and lateral Q Waves: none No evidence of acute ischemia or injury Baseline artifact present, but I consider the EKG adequate for accurate interpretation. Prior electrocardiagrams reviewed. No change from prior tracings. - Physician Consults Physician Consulted: YVES Andersen, for Dr. Forbes Time: 13:15 Reason -: Cardiology Eval/Care Comment/Response: He will see the patient. Patient seen by Elan in the emergency department. Recommends discharge if second troponin negative and follow-up in office. - Reevaluation(s) Time: 17:15
[2021-01-28 12:51] LABS: Basophils % 0.7 % (0.1-2.0); Chloride 106 mmol/L (98-107); Eosinophils # 0.1 K/mm3 (0.0-0.4); Eosinophils % 0.8 % (0.1-12.0); Hematocrit 39.1 % (37.0-47.0); Hemoglobin 13.1 g/dL (12.2-16.2); Lymphocytes # 1.2 K/mm3 (0.7-4.5); Lymphocytes % 17.9 % (10-50); Mean Corpuscular HGB Conc 33.5 g/dL (31.8-35.4); Mean Corpuscular Hemoglobin 31.5 pg (27.0-31.2); Mean Platelet Volume 7.4 fl (7.4-10.4); Monocytes # 0.4 K/mm3 (0.1-1.0); Monocytes % 5.8 % (1.7-9.3); Neutrophils # 5.1 K/mm3 (1.8-7.8); Neutrophils % 74.8 % (37.0-80.0); Platelet Count 240 K/mm3 (142-424); Red Blood Count 4.16 M/mm3 (4.20-5.40); Red Cell Distribution Width 16.2 % (11.5-17.5); Sodium 143 mmol/L (136-145); White Blood Count 6.8 K/mm3 (4.8-10.8)
[2021-01-28 12:52] LABS: Potassium 3.6 mmoL/L (3.5-5.1)
[2021-01-28 12:54] LABS: Blood Urea Nitrogen 9 mg/dl (7-17); Creatinine Clearance Estimated 69 mL/min (50-200); Estimated Glomerular Filt Rate 82 ml/min (>60); GFR (African American) 99 ML/MIN (>60)
[2021-01-28 12:55] LABS: Anion Gap 16.6 mEq/L (5-15); Calcium 8.6 mg/dl (8.4-10.2); Carbon Dioxide 24 mmol/L (22.0-30.0); Glucose 150 mg/dl (74-100)
[2021-01-28 13:01] VITALS: BP 104/58; PULSE 68; RESP 17; O2SAT 96
--- NOTE | 2021-01-28 13:09 | PC.NURSE ---
notified cardiology office of consult on pt
[2021-01-28 13:12] LABS: Troponin I < 0.01 ng/ml (0.00-0.034)
--- NOTE | 2021-01-28 13:13 | PC.NURSE ---
DR GONZALEZ SPEAKING WITH HNADY FROM CARDIOLOGY
--- NOTE | 2021-01-28 13:21 | PC.NURSE ---
HANDY Edwards BS
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
[2021-01-28 14:00] VITALS: BP 94/60; PULSE 68; RESP 19
[2021-01-28 17:11] LABS: Troponin I < 0.01 ng/ml (0.00-0.034)
[2021-01-28 17:29] VITALS: BP 100/62; PULSE 68; RESP 19; TEMP 37; O2SAT 98
== END 2021-01-28 17:30 | disposition home or self-care (01) ==
PROVIDERS: Emergency Provider Emergency Medicine; PCP Nurse Practitioner Family
DX: F41.8 Other specified anxiety disorders (principal); I48.0 Paroxysmal atrial fibrillation; E78.5 Hyperlipidemia, unspecified; Z95.0 Presence of cardiac pacemaker; Z95.1 Presence of aortocoronary bypass graft; K21.9 Gastro-esophageal reflux disease without esophagitis; I25.10 Atherosclerotic heart disease of native coronary artery without angina pectoris; Z79.899 Other long term (current) drug therapy
CPT/HCPCS: 71046; 80048; 84484; 85025; 93005; 96374; 99282

== ENCOUNTER → 2021-05-12 11:06 | Outpatient (CLI) | payer MEDICARE, SELFPAY ==
--- NOTE | 2021-05-12 | CA_ITS ---
APPROVED REPORT Exam: Pharmacologic Technologist: Elda Cerna Ht: 5 ft 5 in Wt: 202 lbs BSA: 1.99 m2 HR: 60 bpm BP: 116/59 mmHg Medical History Medications: Omeprazole,,,,, Levothyroxine,,,,, Aspirin,,,,, Metoprolol,,,,, Escitalopram,,,,, ClonAZEPAM,,,,, Famotidine,,,,, AmiTRIPTYLINE,,,,, Meclizine,,,,, LaMotrigine,,,,, AtorvaASTATIN,,,,, Ranolazine,,,,, Stress Test Details Test: LEXISCAN HR Resting HR: 60 bpm Max Heart Rate (APMHR): 147 bpm Max HR Achieved: 80 bpm Target HR (85% APMHR): 124 bpm % of APMHR: 54 Recovery HR: 63 bpm BP Resting BP: 116.0/59.0 mmHg Max BP: 124.0/48.0 mmHg Recovery BP: 115.0/61.0 mmHg ECG Resting ECG: Sinus with NSSTW abnormalities Clinical Reason for Termination: Completed Protocol Exercise duration: 04:16 min Highest Stage Achieved: Exercise capacity: 1.0 METs Stress ECG Conclusion Non-diagnostic lexiscan stress test. Patient received the infusion per protocol without chest pain, ST segment changes or arrhythmias. See the nuclear report for further information. Electronically signed by : Al Shultz MD 05/12/2021 18:26:51
--- NOTE | 2021-05-12 11:06 | NM_ITS ---
APPROVED REPORT Exam: Nuclear Stress Test Indication: chest pain..short of breath..fatigue..dizziness Patient Location: Outpatient Ht: 5 ft 5 in Wt: 200 lbs Bra Size: 40c HR: 60 bpm BP: 116/59 mmHg BSA: 1.98 m2 BMI: 33.2 History: chest pain..short of breath..fatigue..dizziness Procedure: Patient received a 0.4 mg of intravenous Lexiscan, resting heart rate 60 bpm, resting blood pressure 116/59 mmHg, with Lexiscan maximum heart rate achived was 71 bpm which is Less than 85 % of the maximum predicted heart rate and blood pressure was 94/69 mmHg. With Lexiscan, patient denied any complaint of chest pain. pt unable to lay on her belly. Electrocardiogram Resting electrocardiogram showed sinus rhythm, with Lexiscan less than 1.[address] segment depression noted from the baseline EKG. The EKG portion of the Lexiscan is nondiagnostic. Cardiac Stress and Resting SPECT Images: Cardiac Stress and Resting SPECT images were obtained using technetium 99m Myoview 31.0 mCi stress and 10.83 mCi at rest. Gated SPECT analysis of segmental wall motion and calculation of ejection fraction also done. Prone images were not obtained. Cardiac stress and resting SPECT images show uniform myocardial activity without segmental perfusion abnormality, computer derived ejection fraction is 65% with no regional wall motion abnormality, right ventricle is mildly enlarged with normal contractility. However there is transient ischemic dilatation of the left ventricle seen, raising the concerns for presence of balanced ischemia. Conclusion: 1. The EKG portion of the Lexiscan Myoview is nondiagnostic. 2. No scintigraphic evidence of reversible ischemia seen, computer derived ejection fraction is 65% with no regional wall motion abnormality, right ventricle is mildly enlarged with normal contractility, there is transient ischemic dilatation of the left ventricle seen, raising the concerns for presence of balanced ischemia. Other causes for transient ischemic dilatation include hypertensive heart disease, diabetes mellitus, microvascular disease and elevated left ventricular end-diastolic pressure. Clinical correlation is recommended. 3. Abnormal Lexiscan Myoview study. Electronically signed by : Al Shultz MD 05/12/2021 18:40:24
--- NOTE | 2021-05-12 11:15 | CA_ITS ---
APPROVED REPORT EXAM: Comprehensive 2D, Doppler, and color-flow Echocardiogram Maternal Fetal Physician: Courtney Pearce CRT Ht: 5 ft 5 in Wt: 202lbs BSA: 1.99 BP: 124/41 mmHg Indications: Abnormal ECG, Chest Pain, CAD, Hyperlipidemia, Hypertension/HDD, CABG, PACER 2D Dimensions LVOT 1.96 cm (M/F) 1.5-2.5 LA Volume 37.10 mL LA Volume Index 18.60 mL/m2 (M/F) 16-34 M-Mode Dimensions RVDd 3.46 cm (0.9-2.6) LA Diam 4.99 cm (1.9-4.0) LVDd 4.07 cm (3.5-5.7) Ao Diam 3.45 cm (2.0-3.7) LVDs 3.15 cm (3.5-5.7) IVSd 1.79 cm (0.6-1.1) PWd 0.84 cm (0.6-1.1) EF (Teich) 46.00% FS 22.60% EDV (Teich) 72.90 mL TAPSE 1.35 (<1.7) ESV (Teich) 39.40 mL LV Diastology E Decel Time 180.00 (160-240 msec) E/A Ratio 1.61 MED E' 7.70 (< 7 cm/sec) MED A' 5.70 cm/s E'/MED E' Ratio 13.27 (>14) LAT E' 12.00 (<10 cm/sec) LAT A' 9.30 cm/s E/LAT E' Ratio 8.52 (>14) Aortic Valve AO Peak GR. 11.60 mmHg Mitral Valve MV E Max Cameron. 102.00 (40-130 cm/s) MV A Velocity 63.00 (40-130 cm/s) E/A Ratio 1.61 MV Decel. Time 180.00 (160-240 ms) MV PHT 53.00 ms Pulmonary Valve PV Peak Velocity 138.00 (50-150 cm/s) Tricuspid Valve TR P. Velocity 288.00 cm/s RAP Estimate 10.00 mmHg RVSP 43.30 mmHg Left Ventricle Left atrium is mildly enlarged, left ventricle is normal size, mild concentric left ventricular hypertrophy, visually estimated ejection fraction 55% with no regional wall motion abnormality, diastolic parameters are inconclusive. Right Ventricle Right atrium and right ventricle mildly enlarged with normal contractility, pacemaker lead seen right atrium and right ventricle. Aortic Valve Aortic valve is minimally thickened and fibrosed, there is no aortic stenosis or aortic insufficiency. Mitral Valve Mitral valve is grossly normal, there is mild mitral regurgitation. Tricuspid Valve Tricuspid valve leaflets are minimally thickened, there is moderate tricuspid regurgitation, calculated right ventricular systolic pressure is 46 mm left mercury. Pulmonic Valve Pulmonic valve is poorly visualized. Great Vessels Aortic root is normal size. Inferior vena cava is normal size with normal inspiratory collapse. Pericardium No significant pericardial effusion noted. Conclusion 1. Mild biatrial normal, normal left ventricular size, mild concentric left ventricular hypertrophy, visually estimated ejection fraction 55% with no regional wall motion abnormality, diastolic parameters are inconclusive. 2. Mildly enlarged right ventricle with normal contractility. 3. Mild mitral and moderate tricuspid regurgitation, calculated right ventricular systolic pressure 46 mmHg. 4. No significant pericardial effusion noted. 5. Inferior vena cava is normal size with normal inspiratory collapse. Electronically signed by : Al Shultz MD 05/12/2021 19:48:10
--- NOTE | 2021-05-12 11:15 | CA_ITS ---
APPROVED REPORT Maintenance Foreman: CT Laterality: Bilateral Study Quality: Good Indications: dizziness Risk Factors Hypertension: Hyperlipidemia ex smoker Doppler Spectral Velocity Analysis ECA (R) 85.70/ cm/s ECA (L) 108.50/ cm/s dICA (R) 77.10/25.00 cm/s dICA (L) 84.50/24.60 cm/s Elizabeth (R) 61.60/19.90 cm/s Elizabeth (L) 86.70/18.30 cm/s pICA (R) 174.30/47.00 cm/s pICA (L) 149.30/27.00 cm/s dCCA (R) 89.80/18.00 cm/s dCCA (L) 69.50/14.40 cm/s pCCA (R) 79.30/21.00 cm/s pCCA (L) 108.00/18.20 cm/s Vert (R) 47.90/ cm/s Vert (L) 70.00/ cm/s ICA/CCA 1.94 ICA/CCA 2.15 Findings Duplex evaluation demonstrates stenosis of the right proximal internal carotid artery in the range of 50-69%. Duplex evaluation demonstrates stenosis of the left proximal internal carotid artery in the range of 50-69%. Duplex evaluation demonstrates antegrade flow of the bilateral Vertebral Arteries. Conclusion Duplex evaluation demonstrates stenosis of the right proximal internal carotid artery in the range of 50-69%. Duplex evaluation demonstrates stenosis of the left proximal internal carotid artery in the range of 50-69%. Duplex evaluation demonstrates antegrade flow of the bilateral Vertebral Arteries. Electronically signed by : Torey Castillo MD 05/12/2021 17:14:29
== END ==
PROVIDERS: PCP Nurse Practitioner Family; Visit Provider Nurse Practitioner Family
DX: E78.2 Mixed hyperlipidemia (principal); I25.10 Atherosclerotic heart disease of native coronary artery without angina pectoris; R06.02 Shortness of breath; R07.9 Chest pain, unspecified; R42 Dizziness and giddiness; R94.31 Abnormal electrocardiogram [ECG] [EKG]; Z95.0 Presence of cardiac pacemaker; Z95.1 Presence of aortocoronary bypass graft; R09.89 Other specified symptoms and signs involving the circulatory and respiratory systems; I48.20 Chronic atrial fibrillation, unspecified
CPT/HCPCS: 78452; 93017; 93306; 93880; A9502; J2785

== ENCOUNTER 2021-06-04 08:30 | Day surgery (SDC) | payer MEDICARE, SELFPAY ==
[2021-06-04] VITALS (13 sets, daily range): BP systolic 109–136; BP diastolic 59–73; PULSE 60–69; RESP 16–19; O2SAT 95–100; BMI 34.6
--- NOTE | 2021-06-04 | IR_ITS ---
APPROVED REPORT Patient Location: Outpatient Brick Picker: ZEYNEP Goldman RT (R) PROCEDURES Left heart catheterization Left ventriculogram Selective coronary angiogram Selective engagement of the saphenous vein graft to the circumflex artery Selective engagement of the saphenous vein graft to the ramus intermedius Drug-eluting stent deployment to the ostial dominant right coronary INDICATION Coronary artery disease, History of coronary bypass surgery, High risk abnormal Myoview, Worsening angina pectoris Informed consent was obtained prior to the procedure. COMPLICATIONS NONE Estimated Blood Loss: LESS THAN 10 ML TECHNIQUE One percent lidocaine used to anesthetize the right anterior aspect of the wrist. The right radial artery was accessed via the Seldinger technique. A 6 [place] sheath was placed in the right radial artery. 2.5 mg of verapamil, 800 mcg of nitroglycerin, 1mg Lidocaine and 5000 U Heparin were given through the arterial sheath. A [employer] 1 catheter was used to perform selective engagement of 2 saphenous vein grafts. Antegrade injection of the saphenous vein graft actually provided adequate retrograde filling of the [place] left main LAD and circumflex arteries. The catheter was used to cannulate the dominant right coronary artery which demonstrated a severe ostial stenosis and accounted for the transient ischemic dilatation. Based on this therapeutic heparin was administered giving a therapeutic ACT and a BMW wire was placed distally in the right coronary artery. A 4 mm x 8 mm stent was perfectly placed in the ostium and deployed at 24 tiarra. There was poststenotic dilatation beyond the ostium however it still appeared as though the ostium could be further dilated therefore a 5 mm x 8 mm balloon was deployed at 20 tiarra to further post dilate the ostium. At the end of the procedure the apparatus was removed the sheath was removed good hemostasis was achieved using TR banding patient was transferred to the postop holding her stable condition ANGIOGRAPHIC RESULTS The left main artery Normal The left anterior descending artery Has mild proximal and mid vessel 10 to 20% stenoses. There is a mid vessel myocardial bridge creating a 40% stenosis during systole The circumflex artery The ramus intermedius originates off the left main artery and has a mid vessel 90% stenosis proximal to distal branches which have competitive flow from saphenous vein graft. 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 Dual antiplatelet therapy 2. Risk factor modification 3. Cardiac rehabilitation 4. Avoidance of tobacco products 5. LDL less than 55 Electronically signed by : Heath Forbes MD 06/04/2021 11:12:34
[2021-06-04 09:23] LABS: Coronavirus 19, PCR Not Detected (NotDetected); Influenza A, PCR Not Detected (NotDetected); Influenza B, PCR Not Detected (NotDetected)
[2021-06-04 09:27] LABS: Basophils % 0.6 % (0.1-2.0); Eosinophils # 0.1 K/mm3 (0.0-0.4); Eosinophils % 1.7 % (0.1-12.0); Hematocrit 36.6 % (37.0-47.0); Hemoglobin 11.3 g/dL (12.2-16.2); Lymphocytes # 1.2 K/mm3 (0.7-4.5); Lymphocytes % 21.2 % (10-50); Mean Corpuscular HGB Conc 30.9 g/dL (31.8-35.4); Mean Corpuscular Hemoglobin 29.2 pg (27.0-31.2); Mean Corpuscular Volume 94.6 fl (81-99); Mean Platelet Volume 8.3 fl (7.4-10.4); Monocytes # 0.3 K/mm3 (0.1-1.0); Monocytes % 4.4 % (1.7-9.3); Neutrophils # 4.1 K/mm3 (1.8-7.8); Neutrophils % 71.9 % (37.0-80.0); Platelet Count 234 K/mm3 (142-424); Red Blood Count 3.87 M/mm3 (4.20-5.40); Red Cell Distribution Width 16.3 % (11.5-17.5); White Blood Count 5.7 K/mm3 (4.8-10.8)
[2021-06-04 09:31] LABS: Chloride 103 mmol/L (98-107); Potassium 3.3 mmoL/L (3.5-5.1); Sodium 141 mmol/L (136-145)
[2021-06-04 09:34] LABS: Anion Gap 11.3 mEq/L (5-15); Blood Urea Nitrogen 12 mg/dl (7-17); Calcium 8.2 mg/dl (8.4-10.2); Carbon Dioxide 30 mmol/L (22.0-30.0); Creatinine Clearance Estimated 74 mL/min (50-200); Estimated Glomerular Filt Rate 98 ml/min (>60); GFR (African American) 118 ML/MIN (>60); Glucose 109 mg/dl (74-100)
--- NOTE | 2021-06-04 14:22 | HMH.PHACLD ---
Lynda Bermudez has received discharge medication counseling on the following medications: PATIENT IS CURRENTLY TAKING ASPIRIN 81 MG DAILY, ATORVASTATIN 40 MG HS, AND METOPROLOL SUCCINATE 100 MG DAILY. MD STARTING PATIENT ON BRILINTA 90 MG BID POST CATH. NOT STARTING JULISSA/ARB AT THIS TIME DUE TO PATIENT'S BLOOD PRESSURE.
[2021-06-04 15:22] LABS: CATHL Activated Clotting Time > 400 SEC (74-125)
== END 2021-06-04 15:01 | disposition home or self-care (01) ==
LOC: CATHLAB 08:34
PROVIDERS: PCP Nurse Practitioner Family; Visit Provider Internal Medicine
DX: I25.118 Atherosclerotic heart disease of native coronary artery with other forms of angina pectoris; Z95.1 Presence of aortocoronary bypass graft; Z79.899 Other long term (current) drug therapy; E03.9 Hypothyroidism, unspecified; I48.20 Chronic atrial fibrillation, unspecified; I11.0 Hypertensive heart disease with heart failure; I50.9 Heart failure, unspecified; K21.9 Gastro-esophageal reflux disease without esophagitis; Z88.8 Allergy status to other drugs, medicaments and biological substances; I65.23 Occlusion and stenosis of bilateral carotid arteries; Z95.0 Presence of cardiac pacemaker; Z20.822 Contact with and (suspected) exposure to COVID-19
CPT/HCPCS: 80048; 85025; 85347; 92928; 93459; 99152; C1725; C1769; C1876; C9600; C9803; J1644; Q9967; U0003; U0005

== ENCOUNTER → 2021-06-09 14:15 | Outpatient (CLI) | payer MEDICARE, SELFPAY ==
[2021-06-09 15:13] LABS: Anion Gap 13.6 mEq/L (5-15); Blood Urea Nitrogen 11 mg/dl (7-17); Calcium 8.5 mg/dl (8.4-10.2); Carbon Dioxide 26 mmol/L (22.0-30.0); Chloride 105 mmol/L (98-107); Estimated Glomerular Filt Rate 82 ml/min (>60); GFR (African American) 99 ML/MIN (>60); Glucose 99 mg/dl (74-100); Potassium 3.6 mmoL/L (3.5-5.1); Sodium 141 mmol/L (136-145)
== END ==
PROVIDERS: Visit Provider Urology
DX: E78.5 Hyperlipidemia, unspecified (principal); I20.9 Angina pectoris, unspecified; I48.91 Unspecified atrial fibrillation; R06.00 Dyspnea, unspecified; R94.30 Abnormal result of cardiovascular function study, unspecified; R94.31 Abnormal electrocardiogram [ECG] [EKG]; Z95.0 Presence of cardiac pacemaker; Z95.1 Presence of aortocoronary bypass graft
CPT/HCPCS: 36415; 80048

== ENCOUNTER 2021-06-19 15:58 | Emergency (ER) | payer MEDICARE, SELFPAY ==
[2021-06-19 15:58] VITALS: BP 121/70; PULSE 66; RESP 14; TEMP 36.6; O2SAT 100; BMI 33.3
--- NOTE | 2021-06-19 15:58 | ECG_ITS ---
APPROVED REPORT Exam: Resting ECG HR:61 bpm ECG Measurements Heart Rate 61 AXES QRSd 104 QRS 48 QT 446 T 76 QTc 448 Conclusion Electronic atrial pacemker Abnormal ECG Electronically signed by : Nelson Gonzalez MD 06/20/2021 13:51:39
[2021-06-19 16:15] VITALS: BP 109/57; PULSE 62; RESP 16; O2SAT 97
--- NOTE | 2021-06-19 16:15 | XR_ITS ---
PROCEDURE: XR CHEST PORTABLE CLINICAL HISTORY: CP Prior CABG. Bipolar pacemaker is present with leads in satisfactory AP position. COMPARISON: CT AGCHEST CT angio chest from 03/30/2018 CR CXR2 XR chest AP from 10/16/2018 CR CXR1VP XR chest portable from 11/21/2018 CR XR CHEST 2V from 01/28/2021 FINDINGS: The cardiomediastinal silhouette and pulmonary vascularity are unremarkable. Bipolar pacemaker present with leads in satisfactory position. Prior CABG. Minimal atelectatic change left lung base. No acute bony abnormalities. IMPRESSION: No acute findings. Dictated by: Torey Castillo MD 06/19/2021 16:38 Torey Castillo MD in OV 06/19/2021 16:38
[2021-06-19 16:33] LABS: Chloride 102 mmol/L (98-107); Potassium 3.8 mmoL/L (3.5-5.1); Sodium 141 mmol/L (136-145)
[2021-06-19 16:36] LABS: Anion Gap 12.8 mEq/L (5-15); Blood Urea Nitrogen 10 mg/dl (7-17); Calcium 8.6 mg/dl (8.4-10.2); Carbon Dioxide 30 mmol/L (22.0-30.0); Creatinine Clearance Estimated 71 mL/min (50-200); Estimated Glomerular Filt Rate 82 ml/min (>60); GFR (African American) 99 ML/MIN (>60); Glucose 119 mg/dl (74-100)
[2021-06-19 16:51] LABS: Troponin I < 0.01 ng/ml (0.00-0.034)
[2021-06-19 17:16] LABS: Basophils % 0.7 % (0.1-2.0); Eosinophils # 0.1 K/mm3 (0.0-0.4); Eosinophils % 1.5 % (0.1-12.0); Hematocrit 38.9 % (37.0-47.0); Hemoglobin 12.8 g/dL (12.2-16.2); Lymphocytes # 1.3 K/mm3 (0.7-4.5); Lymphocytes % 22.9 % (10-50); Mean Corpuscular HGB Conc 32.9 g/dL (31.8-35.4); Mean Corpuscular Hemoglobin 29.9 pg (27.0-31.2); Mean Corpuscular Volume 90.9 fl (81-99); Mean Platelet Volume 8.6 fl (7.4-10.4); Monocytes # 0.3 K/mm3 (0.1-1.0); Monocytes % 5.6 % (1.7-9.3); Neutrophils # 3.9 K/mm3 (1.8-7.8); Neutrophils % 69.3 % (37.0-80.0); Platelet Count 305 K/mm3 (142-424); Red Blood Count 4.28 M/mm3 (4.20-5.40); Red Cell Distribution Width 16.2 % (11.5-17.5); White Blood Count 5.7 K/mm3 (4.8-10.8)
--- NOTE | 2021-06-19 17:22 | HMH.EDGENADL ---
ED Disposition Clinical Impression: Atypical chest pain Disposition: Home, Self-Care Condition on Discharge: Good Instructions: DI for Atypical Chest Pain Additional Instructions: See Dr. Forbes tomorrow morning at 10 AM in his office. Additional instructions for CHEST PAIN: Return immediately if worsening chest pain, vomiting, shortness of breath, fever, coughing of blood. Referrals: Provider,Referral, [Primary Care Provider] - - Critical Care Critical Care Time: No Attestation: On 06/19/21, the high probability of a clinically significant, sudden or life threatening deterioration of the following system(s) required my full and direct attention, intervention and personal management. The time I documented below is in addition to time spent performing reported procedures but includes the following listed in this critical care notation. Medical Decision Making - Medical Records Medical records reviewed: Yes: I reviewed the patient's medical records. MR Comment: Reviewed recent stress test, echocardiogram, cardiac cath/stent reports. Reviewed recent cardiology office follow-up 06/09/2021. CT without contrast for dyspnea discussed with patient, but she declined. - Brian Inquiry Pt receiving controlled substance: No Vital Signs: 06/19/21 15:58 06/19/21 16:15 06/19/21 20:28 Temperature 97.9 F 98.3 F Temperature Source Oral Oral Pulse Rate 62 83 Pulse Rate [Right Radial] 66 Respiratory Rate 14 16 19 Blood Pressure 109/57 L 105/56 L Blood Pressure [Right Arm] 121/70 Blood Pressure Mean [Right Arm] 87 Blood Pressure Source Automatic Cuff Automatic Cuff Blood Pressure Source [Right Arm] Automatic Cuff Blood Pressure Position Sitting Sitting Blood Pressure Position [Right Arm] Sitting 02 Sat by Pulse Oximetry 100 97 Oxygen Delivery Method Room Air Room Air Room Air - Lab Data Lab Results 06/19/21 16:10: WBC 5.7, RBC 4.28, Hgb 12.8, Hct 38.9, MCV 90.9, MCH 29.9, MCHC 32.9, RDW 16.2, Plt Count 305, MPV 8.6, Neut % (Auto) 69.3, Lymph % (Auto) 22.9, [place] % (Auto) 5.6, Eos % (Auto) 1.5, Baso % (Auto) 0.7, Neut # (Auto) 3.9, Lymph # (Auto) 1.3, [place] # (Auto) 0.3, Eos # (Auto) 0.1, Baso # (Auto) 0.0 06/19/21 16:10: Sodium 141, Potassium 3.8, Chloride 102, Carbon Dioxide 30, Anion Gap 12.8, BUN 10, Creatinine 0.70, Estimated Creat Clear 71, Estimated GFR 82, Est GFR ( Amer) 99, Glucose 119 H, Calcium 8.6, Troponin I < 0.01 06/19/21 19:30: Troponin I < 0.01 Result diagrams: 06/19/21 16:10 06/19/21 16:10 Orders (Tests/Meds): ED MEDICATIONS Discontinued Medications Generic Name Dose Route Start Last Admin Trade Name Freq PRN Reason Stop Dose Admin Aspirin 243 mg 06/19/21 17:16 06/19/21 17:18 Aspirin 81mg Chewable Tablet PO 06/19/21 17:17 243 mg ONCE ONE Administration Ondansetron HCl 4 mg 06/19/21 17:10 06/19/21 17:18 Ondansetron 4mg/2ml Vial IV 06/19/21 17:11 4 mg ONCE ONE Administration ORDERS Category Date Time Status Troponin I Q3H Lab 06/19/21 22:30 Ordered - ECG Data Tracing #1 EKG interpreted by Regulo Iyer MD: Rhythm: Electronic atrial pacemaker Rate: 61 [place]: normal Ectopy: none Conduction: normal ST Segment Changes: none T Wave Changes: Nonspecific Q Waves: none No evidence of acute ischemia or injury - Physician Consults Physician Consulted: Leidy Time: 17:40 Reason -: Cardiology Eval/Care Comment/Response: Discharge if second troponin normal. Follow-up in his office tomorrow morning at 10 AM. - Reevaluation(s) Time: 20:16 Reevaluation #1: Patient second troponin is normal. Says that she feels good. She would like to be discharged. Sitting upright in bed in no distress and in no discomfort. - TERESA Score for Non-Stemi Age of Patient: 70-79 years old Heart Rate: 50-69 bpm Systolic Blood Pressure: 120-139 mmhg Serum Creatinine: 0.40-0.79 mg/dl CHF [place] Class: I-No CHF Other Risk Fa
--- NOTE | 2021-06-19 17:36 | PC.NURSE ---
Dr. Forbes paged
--- NOTE | 2021-06-19 17:41 | PC.NURSE ---
speaking with Dr. Forbes
[2021-06-19 20:11] LABS: Troponin I < 0.01 ng/ml (0.00-0.034)
[2021-06-19 20:28] VITALS: BP 105/56; PULSE 83; RESP 19; TEMP 36.8; O2SAT 97
== END 2021-06-19 20:35 | disposition home or self-care (01) ==
PROVIDERS: Emergency Provider Emergency Medicine
DX: R07.89 Other chest pain (principal); I10 Essential (primary) hypertension; I25.10 Atherosclerotic heart disease of native coronary artery without angina pectoris; F41.8 Other specified anxiety disorders; K21.9 Gastro-esophageal reflux disease without esophagitis; E78.5 Hyperlipidemia, unspecified; Z87.891 Personal history of nicotine dependence; E03.9 Hypothyroidism, unspecified; Z79.899 Other long term (current) drug therapy
CPT/HCPCS: 36415; 71045; 80048; 84484; 85025; 93005; 96374; 99283; J2405

== ENCOUNTER → 2021-07-18 13:52 | Outpatient (CLI) | payer MEDICARE, SELFPAY ==
--- NOTE | 2021-07-18 13:56 | MM_ITS ---
PROCEDURE INFORMATION: Exam: MG Bilateral Diagnostic Breast Tomosynthesis Exam date and time: 07/18/2021 1:56 PM Age: 76 years old Clinical indication: HX of left breast cancer treated with lumpectomy, follow up of left breast calcifications TECHNIQUE: Imaging protocol: Bilateral Diagnostic tomosynthesis and 2D mammography including computer-aided detection (CAD) when performed. Unilateral or bilateral exam. COMPARISON: 1. MG MM DIG MAMM BI DX W/CAD 12/19/2020 1:02 PM 2. MG MM DIG MAMM BI DX W/CAD 10/10/2019 1:18 PM FINDINGS: MAMMOGRAPHY: The breast tissue is composed of scattered areas of fibroglandular density. There is no stellate mass, architectural distortion or suspicious microcalcifications in either breast to suggest malignancy. Benign dystrophic calcifications in the left upper outer quadrant lumpectomy site. No skin thickening or axillary adenopathy. IMPRESSION: No mammographic evidence of malignancy. Benign left breast calcifications.Annual bilateral mammographic screening is recommended unless otherwise clinically indicated. ASSESSMENT: BI-RADS Category 2: Benign
== END ==
PROVIDERS: PCP Nurse Practitioner Family; Visit Provider Nurse Practitioner Family
DX: R92.2 Inconclusive mammogram (principal)
CPT/HCPCS: 77062; 77066; G0279

== ENCOUNTER 2021-09-18 11:06 | Emergency (ER) | payer MEDICARE, SELFPAY ==
[2021-09-18 11:13] VITALS: BP 108/63; PULSE 88; RESP 16; TEMP 36.8; O2SAT 99; BMI 38.6
[2021-09-18 11:59] VITALS: BP 108/63; PULSE 88; RESP 16; TEMP 36.8; O2SAT 99; BMI 38.5
[2021-09-18 12:14] LABS: Adenovirus,PCR Not Detected (NotDetected); Bordetella Pertussis Not Detected (NotDetected); Chlamydophila Pneumoniae, PCR Not Detected (NotDetected); Coronavirus 19, PCR Not Detected (NotDetected); Coronavirus 229E Not Detected (NotDetected); Coronavirus NL63 Not Detected (NotDetected); Coronavirus OC43 Not Detected (NotDetected); Coronovirus HKU1,PCR Not Detected (NotDetected); Human Metapneumovirus Not Detected (NotDetected); Influenza A, PCR Not Detected (NotDetected); Influenza AH1, 2009 Not Detected (NotDetected); Influenza AH1, PCR Not Detected (NotDetected); Influenza AH3,PCR Not Detected (NotDetected); Influenza B, PCR Not Detected (NotDetected); Mycoplasma Pneumoniae, PCR Not Detected (NotDetected); Parainfluenza 1, PCR Not Detected (NotDetected); Parainfluenza 2, PCR Not Detected (NotDetected); Parainfluenza 3, PCR Not Detected (NotDetected); Parainfluenza 4, PCR Not Detected (NotDetected); Respiratory Syncytial Virus Not Detected (NotDetected); Rhinovirus/Enterovirus Not Detected (NotDetected)
[2021-09-18 12:25] LABS: Strep Scrn Group A (Rapid) Negative (Negative)
--- NOTE | 2021-09-18 12:56 | HMH.EDUTC ---
[facility] Disposition Clinical Impression: Viral upper respiratory tract infection with cough Disposition: Home, Self-Care Condition on Discharge: Good Instructions: Cough, Sore Throat, DI for Nasal Congestion Additional Instructions: *Monitor Temp, Over the counter Motrin or Tylenol as directed/as needed Tylenol every 4 hours and Motrin every 6 hours (as long as your family doctor has told you that you can take it) for fever or pain. and straight to ER if unable to lower temp less than 101.0 after medication given *Warm salt water gargles may help to soothe the throat *Throat Lozenges *Warm fluids like tea with honey may help to soothe the throat *Sleep elevated *Humidifier/Vaporizer *Flonase 2 sprays in each nostril daily but be aware that it may take 2-3 days before you notice improvement Your throat swab was sent for culture. Those results are typically sent to your primary care. Be sure to follow up in 2-3 days with your family doctor/primary care physician if no improvement so they can review those result and treat if necessary. If you don?t have a primary care doctor, I recommend you get one but in the mean time, you will have to return to a walk in clinic Follow up IMMEDIATELY for new or worsening symptoms or no Noticeable improvement over the next 48-72 hours. 911 for difficulty breathing or swallowing You were tested for today for COVID19 your test result should be back in the next 24-72 hours, you may check your results on the [facility] [employer] health portal if you have trouble logging on you may call support If you are positive someone from the hospital will be calling you Make sure to take your Vitamins Vit. C Vit D and Zinc if you can take them Prescriptions: Benzonatate [Benzonatate 100mg cap] 100 mg PO Q8HP PRN #15 cap PRN Reason: Cough Transmission Status: Pending to [facility] Fluticasone Propionate [Flonase 50mcg nasal spray 16gm] 1 spr NS DAILY #1 each Transmission Status: Pending to [facility] Referrals: Alis Umana [Primary Care Provider] - As needed Time of Disposition: 13:08 Medical Decision Making - Brian Inquiry Pt receiving controlled substance: No Brian was queried for this patient: No Vital Signs: 09/18/21 11:13 09/18/21 11:59 Temperature 98.3 F 98.3 F Temperature Source Oral Oral Pulse Rate [Right] 88 88 Respiratory Rate 16 16 Blood Pressure [Right Arm] 108/63 L 108/63 L Blood Pressure Mean [Right Arm] 78 78 Blood Pressure Source [Right Arm] Automatic Cuff Blood Pressure Position [Right Arm] Sitting 02 Sat by Pulse Oximetry 99 99 Oxygen Delivery Method Room Air - Lab Data Lab results reviewed: Yes: I reviewed the patient's lab results. Lab Results 09/18/21 12:00: Group A Strep Rapid Negative Orders (Tests/Meds): ORDERS Category Date Time Status Full Resp Panel w/COVID ([facility]) Routine Lab 09/18/21 11:56 Received Strep Screen Confirmation Stat Micro 09/18/21 12:00 Received Medical Decision Narrative: discussed CXR and pateint declined states that she didnt want it she isnt feeling soa now [facility] HPI - General Stated complaint: SOA Time Seen by Provider: 09/18/21 12:57 Mode of Arrival: Wheelchair Source of Information: Patient Limitations: No Limitations Description of Symptoms (Recalled from Triage Doc. by RN): pt c/o a nonproductive cough, fatigue, sore throat and congestion. HEENT Symptoms (Recalled from RN notes): Yes Resp Symptoms (Recalled from RN notes): Yes Skin Symptoms (Recalled from RN notes): No MS Symptoms (Recalled from RN notes): No Functional Status (Recalled from RN notes): wnl - History of Present Illness Provider Complaint: Patient states that she was around someone with COVID a week or two ago State that she has been having nasal drainage scratchy throat and cough States that last night she noticed she was feeling a little rattle like feeling in the back of her throat but it cleared with cough States that daughter
[2021-09-18 13:13] VITALS: BP 108/63; PULSE 88; RESP 16; TEMP 36.8
== END 2021-09-18 13:14 | disposition home or self-care (01) ==
LOC: ER 11:18 → UTC 11:22
PROVIDERS: Emergency Provider Nurse Practitioner; PCP Nurse Practitioner Family
DX: J06.9 Acute upper respiratory infection, unspecified (principal); I25.10 Atherosclerotic heart disease of native coronary artery without angina pectoris; I10 Essential (primary) hypertension; K21.9 Gastro-esophageal reflux disease without esophagitis; E03.9 Hypothyroidism, unspecified; Z79.899 Other long term (current) drug therapy; Z20.822 Contact with and (suspected) exposure to COVID-19
CPT/HCPCS: G0463; 87430; 87581; 87632; 87798; 99203; C9803; U0003; U0005

== ENCOUNTER 2022-06-20 08:23 | Emergency (ER) | payer MEDICARE, SELFPAY ==
[2022-06-20 08:24] VITALS: BP 106/45; PULSE 65; RESP 18; TEMP 36.6; O2SAT 98; BMI 37.9
--- NOTE | 2022-06-20 08:29 | PC.NURSE ---
ED MD AT BEDSIDE FOR EVALUATION
[2022-06-20 08:30] VITALS: BP 96/45; PULSE 62; O2SAT 99
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
[2022-06-20 09:01] VITALS: BP 119/52; PULSE 63; O2SAT 97
--- NOTE | 2022-06-20 09:08 | PC.NURSE ---
PT TO CT AT THIS TIME
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
--- NOTE | 2022-06-20 09:24 | PC.NURSE ---
pt back from rad
--- NOTE | 2022-06-20 09:41 | PC.NURSE ---
took pt something to drink and phone to call for a ride
[2022-06-20 09:47] VITALS: BP 126/45; PULSE 70; RESP 17; TEMP 36.6; O2SAT 99
--- NOTE | 2022-06-20 09:55 | PC.NURSE ---
pt sitting up on the side of the bed, waiting on a ride, nothing was needed at this time
== END 2022-06-20 10:10 | disposition home or self-care (01) ==
PROVIDERS: Emergency Provider Student in an Organized Health Care Education/Training Program; PCP Nurse Practitioner Family
DX: S39.012A Strain of muscle, fascia and tendon of lower back, initial encounter (principal); V89.0XXA Person injured in unspecified motor-vehicle accident, nontraffic, initial encounter; Z79.899 Other long term (current) drug therapy; Z88.6 Allergy status to analgesic agent; Z95.0 Presence of cardiac pacemaker; I48.20 Chronic atrial fibrillation, unspecified; K21.9 Gastro-esophageal reflux disease without esophagitis
CPT/HCPCS: 71045; 72131; 73502; 99285

== ENCOUNTER → 2022-09-11 14:46 | Outpatient (CLI) | payer MEDICARE, SELFPAY ==
[2022-09-11 15:47] LABS: Basophils # 0.2 K/mm3 (0-0.2); Basophils % 2.8 % (0.1-2.0); Eosinophils # 0.1 K/mm3 (0.0-0.4); Eosinophils % 1.5 % (0.1-12.0); Hemoglobin 12.1 g/dL (12.2-16.2); Lymphocytes # 1.4 K/mm3 (0.7-4.5); Lymphocytes % 21.1 % (10-50); Mean Corpuscular HGB Conc 32.6 g/dL (31.8-35.4); Mean Corpuscular Hemoglobin 24.5 pg (27.0-31.2); Mean Corpuscular Volume 75.2 fl (81-99); Mean Platelet Volume 7.5 fl (7.4-10.4); Monocytes # 0.3 K/mm3 (0.1-1.0); Monocytes % 5.3 % (1.7-9.3); Neutrophils # 4.5 K/mm3 (1.8-7.8); Neutrophils % 69.3 % (37.0-80.0); Platelet Count 298 K/mm3 (142-424); Red Blood Count 4.92 M/mm3 (4.20-5.40); Red Cell Distribution Width 17.8 % (11.5-17.5); White Blood Count 6.5 K/mm3 (4.8-10.8)
[2022-09-11 18:54] LABS: Alanine Aminotransferase 19 U/L (12-78); Albumin Level 4.3 g/dl (3.5-5.0); Alkaline Phosphatase 158 U/L (38-126); Anion Gap 9.3 mEq/L (5-15); Aspartate Amino Transferase 27 U/L (14-36); Bilirubin,Direct 0.2 mg/dl (0.0-0.4); Bilirubin,Indirect 0.3 mg/dL (0.0-0.9); Bilirubin,Total 0.5 mg/dl (0.2-1.3); Bilirubin,Unconjugated 0.3 mg/dL (0.0-1.1); Blood Urea Nitrogen 15 mg/dl (7-17); Calcium 7.8 mg/dl (8.4-10.2); Carbon Dioxide 30 mmol/L (22.0-30.0); Chloride 104 mmol/L (98-107); Chol/HDL Ratio 1.8 (1-3.5); Cholesterol 94 mg/dl (140-200); Estimated Glomerular Filt Rate 70 ml/min (>60); GFR (African American) 85 ML/MIN (>60); Glucose 106 mg/dl (74-100); HDL Cholesterol 51 mg/dl (40-60); Magnesium 1.8 mg/dl (1.6-2.3); Potassium 3.3 mmoL/L (3.5-5.1); Sodium 140 mmol/L (136-145); Total Protein,Serum 6.6 g/dl (6.3-8.2); Triglycerides 88 mg/dl (30-150); VLDL Cholesterol 18 mg/dL (0-40)
[2022-09-11 19:04] LABS: NT Pro Brain Natriuretic Pep. 322 pg/mL (0-450)
[2022-09-11 19:12] LABS: Free T4 (Free Thyroxine) 1.79 ng/dl (0.78-2.19)
[2022-09-11 19:25] LABS: Thyroid Stimulating Hormone 0.73 uIU/mL (0.465-4.68)
== END ==
PROVIDERS: PCP Nurse Practitioner Family; Visit Provider Internal Medicine Cardiovascular Disease
DX: R06.00 Dyspnea, unspecified (principal); R06.01 Orthopnea; R06.02 Shortness of breath; E78.2 Mixed hyperlipidemia; I10 Essential (primary) hypertension; I25.118 Atherosclerotic heart disease of native coronary artery with other forms of angina pectoris; R94.31 Abnormal electrocardiogram [ECG] [EKG]; Z95.0 Presence of cardiac pacemaker; Z95.1 Presence of aortocoronary bypass graft; I48.20 Chronic atrial fibrillation, unspecified
CPT/HCPCS: 36415; 80048; 80061; 80076; 83735; 83880; 84439; 84443; 85025

== ENCOUNTER → 2022-09-16 11:39 | Outpatient (CLI) | payer MEDICARE, SELFPAY ==
--- NOTE | 2022-09-16 11:45 | MM_ITS ---
PROCEDURE INFORMATION: Exam: MG Bilateral Screening 3D Mammography Exam date and time: 09/16/2022 11:38 AM Age: 77 years old Clinical indication: Screening examination. Personal history of left breast cancer, status post left lumpectomy. TECHNIQUE: Imaging protocol: Bilateral Screening tomosynthesis and 2D mammography including computer-aided detection (CAD) when performed. COMPARISON: 1. MG MM DIG MAMM BI DX W/CAD 07/18/2021 2:23 PM 2. MG MM DIG MAMM BI DX W/CAD 12/19/2020 1:02 PM 3. MG MM DIG MAMM BI DX W/CAD 10/10/2019 1:18 PM 4. MG MM clip placement RT 02/08/2019 2:33 PM FINDINGS: MAMMOGRAPHY: Breast composition: There are scattered areas of fibroglandular density. Mass: No suspicious mass. Architectural distortion: Stable postsurgical scarring, surgical clips and calcifications of the left upper outer quadrant lumpectomy site. Stable diffuse bilateral architectural distortion with history of reduction mammoplasty. Calcifications: No suspicious calcifications. Asymmetric density: None. Skin thickening: None. Axillary adenopathy: None. Other: Right biopsy clip. IMPRESSION: No mammographic evidence of malignancy. Annual screening is recommended unless otherwise clinically indicated. ASSESSMENT: BI-RADS Category 1: Negative
--- NOTE | 2022-09-16 11:45 | XR_ITS ---
FINAL REPORT CLINICAL HISTORY: PAIN FINDINGS: LEFT HAND Three views demonstrate no acute fracture. There is no dislocation. The visualized joint spaces are normally aligned. There are mild hypertrophic changes in the DIP, PIP and basilar joints. The soft tissues are unremarkable. IMPRESSION: Findings consistent with osteoarthritis. Reviewed, Interpreted and Dictated by Andres Argueta MD Transcribed by Ambar Galvez Authenticated and [facility]
[2022-09-16 13:29] LABS: Uric Acid 5.5 mg/dl (2.5-6.2)
[2022-09-16 13:31] LABS: Erythrocyte Sedimentation Rate 19 mm/hr (0-30)
[2022-09-17 12:15] LABS: RA Latex Turbid. 10.7 IU/mL (<14.0)
== END ==
LOC: RAD 11:39
PROVIDERS: PCP Nurse Practitioner Family; Visit Provider Nurse Practitioner Family
DX: Z12.31 Encounter for screening mammogram for malignant neoplasm of breast (principal); M79.642 Pain in left hand
CPT/HCPCS: 36415; 73130; 77063; 77067; 84550; 85651; 86038; 86431

== ENCOUNTER → 2022-09-23 08:23 | Outpatient (CLI) | payer MEDICARE, SELFPAY ==
--- NOTE | 2022-09-23 | CA_ITS ---
APPROVED REPORT Exam: Pharmacologic Technologist: Cristina Hewitt, Ht: 5 ft 5 in Wt: 218 lbs BSA: 2.05 m2 HR: 60 bpm BP: 125/54 mmHg Medical History Medical History: HTN, Hyperlipidemia Medications: Alprazolam,,,,, Levothyroxine,,,,, Metoprolol,,,,, Lexapro,,,,, Pantoprazole,,,,, Atorvastatin,,,,, Lasix,,,,, SpirOLACTONE,,,,, Plavix,,,,, AmiTRIPTYLINE,,,,, MeMANTINE,,,,, Cariprazine,,,,, Cardiac Risk Factors: HTN, Hyperlipidemia Stress Test Details Test: LEXISCAN HR Resting HR: 61 bpm Max Heart Rate (APMHR): 145.911280 bpm Max HR Achieved: 82 bpm Target HR (85% APMHR): 123.630719 bpm % of APMHR: 56.55 Recovery HR: 70 bpm BP Resting BP: 125/54 mmHg Max BP: 125/54 mmHg Recovery BP: 100.0/46.0 mmHg ECG Clinical Exercise duration: 04:00 min Highest Stage Achieved: Exercise capacity: 1.0 METs Stress ECG Conclusion DURING INFUSION PATIENT HAD SOA AND CHEST PAIN. RARE PAC/PVC. <1.5MM ST CHANGES Test Summary REST . . . . . . . Sitting REST 08:53 . . 61 . 125/ 54 . . Stage 1 . . . . . . . Myoview Injected Stage 1 01:00 . . 71 . . . . Stage 2 01:00 . . 69 . . . . Stage 3 01:00 . . 70 . 97/ 40 . . Stage 4 01:00 . . 70 . 112/ 50 . Stop exercise at 04:00 RECOVERY 01:00 . . 71 . . . . RECOVERY 02:00 . . 69 . 100/ 46 . . RECOVERY 02:22 . . 70 . 100/ 50 . . Electronically signed by : Al Shultz MD 09/23/2022 16:51:54
--- NOTE | 2022-09-23 | CA_ITS ---
APPROVED REPORT EXAM: Comprehensive 2D, Doppler, and color-flow Echocardiogram Exercise Instruct: Miley Bejarano, RT(R) Ht: 5 ft 5 in Wt: 218lbs BSA: 2.05 BP: 127/69 mmHg Indications: HTN, hyperlipidemia, SOB, AFIB, Pacemaker, GERD, abn Holter, CAD, hx of CABG 2D Dimensions Aortic Root 1.95 cm F: 2.7 - 3.3 LVEF (Parsons's) 55.60 % F: 54 - 74 LV Volume 107.60 mL F: 46 - 106 LV Volume Index 52.49 mL/m2 F: 29 - 61 M-Mode Dimensions RVDd 2.95 cm (0.9-2.6) LA Diam 4.84 cm (1.9-4.0) LVDd 5.68 cm (3.5-5.7) Ao Diam 2.69 cm (2.0-3.7) LVDs 4.47 cm (3.5-5.7) IVSd 0.58 cm (0.6-1.1) PWd 0.67 cm (0.6-1.1) EF (Teich) 42.70% FS 21.30% EDV (Teich) 158.80 mL ESV (Teich) 91.00 mL LV Diastology E Decel Time 173.00 (160-240 msec) E/A Ratio 1.3 MED E' 7.60 (< 7 cm/sec) E'/MED E' Ratio 11.64 (>14) LAT E' 12.30 (<10 cm/sec) E/LAT E' Ratio 7.20 (>14) Mitral Valve MV E Max Cameron. 88.00 (40-130 cm/s) MV A Velocity 70.00 (40-130 cm/s) E/A Ratio 1.26 MV Decel. Time 173.00 (160-240 ms) MV PHT 51.00 ms Tricuspid Valve TR P. Velocity 283.00 cm/s RAP Estimate 15.00 mmHg RVSP 47.10 mmHg Left Ventricle Left atrium is mildly enlarged, left ventricle is normal size mild concentric left ventricular hypertrophy, estimated ejection fraction 55% with no regional wall motion abnormality, diastolic parameters are inconclusive. Right Ventricle Right atrium and right ventricular mildly enlarged with normal contractility, pacemaker leads in the right ventricle. Aortic Valve Aortic valve is minimally thickened and calcified without aortic stenosis aortic insufficiency. Mitral Valve Mitral valve has mitral annular calcification, there is no mitral stenosis, there is trace mitral regurgitation. Tricuspid Valve Tricuspid grossly normal, there is trace tricuspid regurgitation, calculated right ventricular systolic pressure is 47 mmHg. Pulmonic Valve Pulmonic valve is poorly visualized. Great Vessels Aortic root is normal size. Inferior vena cava is poorly visualized. Pericardium No significant pericardial effusion noted. Conclusion 1. Mild biatrial enlargement, normal left ventricular size, mild concentric left ventricular hypertrophy, estimated ejection fraction 55% with no regional wall motion abnormality, diastolic parameters are inconclusive. 2. Mildly enlarged right ventricle with normal contractility. 3. Trace mitral and tricuspid regurgitation, calculated right ventricular systolic pressure is 47 mmHg. 4. No significant pericardial effusion noted. 5. Inferior vena cava is poorly visualized. Electronically signed by : Al Shultz MD 09/23/2022 13:05:38
--- NOTE | 2022-09-23 08:24 | NM_ITS ---
APPROVED REPORT Exam: Nuclear Stress Test Indication: SOB, CAD, CABG, High cholesterol, Family history Patient Location: Outpatient Stress Tech: Shannan Barrerankson NM Tech:Shoshana Garcia, ARRT, RT (R)(N) Ht: 5 ft 5 in Wt: 218 lbs Bra Size: 42DD HR: 61 bpm BP: 125/54 mmHg BSA: 2.05 m2 TID: 1.09 BMI: 36.2 History: SOB, CAD, CABG, High cholesterol, Family history Procedure: Patient received 0.4 mg of intravenous Lexiscan, resting heart rate 61 bpm, resting blood pressure 125/54 mmHg, with Lexiscan maximum heart rate achieved was 82 bpm which is Less than 85 % of the maximum predicted heart rate and blood pressure was 125/54 mmHg. Electrocardiogram Resting electrocardiogram showed sinus rhythm nonspecific ST-T changes, with Lexiscan there is less than 1.[address] segment depression noted from the baseline EKG. The EKG portion of the Lexiscan is nondiagnostic. Cardiac Stress and Resting SPECT Images: Cardiac Stress and Resting SPECT images were obtained using technetium 99m Myoview 30.2 mCi stress and 9.51 mCi at rest. Patient unable to lay on stomach for prone images. Gated SPECT analysis of segmental wall motion and calculation of the ejection fraction also done. Prone images were also obtained. Cardiac stress and rest SPECT images show uniform myocardial activity without segmental perfusion abnormality, computer derived ejection fraction is 65% with no regional wall motion abnormality, right ventricle is mildly enlarged with normal contractility. Conclusion: 1. The EKG portion of the Lexiscan is nondiagnostic. 2. No scintigraphic evidence of reversible ischemia seen, computer derived ejection fraction is 65% with no regional wall motion abnormality, right ventricle is mildly enlarged with normal contractility. 3. Normal Lexiscan Myoview study. Electronically signed by : Al Shultz MD 09/23/2022 16:54:11
--- NOTE | 2022-09-23 10:07 | HMH.ITSHM ---
Current Home Medications as stated by this patient Lynda Bermudez or community engagement representative. []SPIRONOLACTONE POTASSIUM PNATOPRAZOLE MUPIROCIN METOPROLOL MEMANTINE LEVOTHYROXINE FUROSEMIDE ESCITALOPRAM CLOPIDOGREL CARIPRAZINE ATORVASTATIN AMITRIPTYLINE ALPRAZOLAM
[2022-09-23 12:49] LABS: Chloride 103 mmol/L (98-107); Sodium 139 mmol/L (136-145)
[2022-09-23 12:50] LABS: Potassium 3.8 mmoL/L (3.5-5.1)
[2022-09-23 12:52] LABS: Blood Urea Nitrogen 19 mg/dl (7-17); Estimated Glomerular Filt Rate 61 ml/min (>60); GFR (African American) 74 ML/MIN (>60)
[2022-09-23 12:53] LABS: Anion Gap 13.8 mEq/L (5-15); Calcium 8.5 mg/dl (8.4-10.2); Carbon Dioxide 26 mmol/L (22.0-30.0); Glucose 104 mg/dl (74-100)
== END ==
LOC: RAD 08:24
PROVIDERS: PCP Nurse Practitioner Family; Visit Provider Physician Assistant
DX: Z01.810 Encounter for preprocedural cardiovascular examination (principal); I10 Essential (primary) hypertension; R06.00 Dyspnea, unspecified; R06.01 Orthopnea; R06.02 Shortness of breath
CPT/HCPCS: 36415; 78452; 80048; 93017; 93306; A9502; J2785

== ENCOUNTER → 2022-10-02 14:31 | Outpatient (CLI) | payer MEDICARE, SELFPAY ==
[2022-10-02 15:32] LABS: Anion Gap 6.2 mEq/L (5-15); Blood Urea Nitrogen 15 mg/dl (7-17); Calcium 8.9 mg/dl (8.4-10.2); Carbon Dioxide 31 mmol/L (22.0-30.0); Chloride 104 mmol/L (98-107); Estimated Glomerular Filt Rate 61 ml/min (>60); GFR (African American) 74 ML/MIN (>60); Glucose 112 mg/dl (74-100); Potassium 4.2 mmoL/L (3.5-5.1); Sodium 137 mmol/L (136-145)
== END ==
PROVIDERS: PCP Nurse Practitioner Family; Visit Provider Internal Medicine Cardiovascular Disease
DX: E78.2 Mixed hyperlipidemia (principal); I10 Essential (primary) hypertension; I25.118 Atherosclerotic heart disease of native coronary artery with other forms of angina pectoris; R06.00 Dyspnea, unspecified; R06.01 Orthopnea; R06.02 Shortness of breath; R94.31 Abnormal electrocardiogram [ECG] [EKG]; Z95.0 Presence of cardiac pacemaker; Z95.1 Presence of aortocoronary bypass graft; I48.20 Chronic atrial fibrillation, unspecified
CPT/HCPCS: 36415; 80048

== ENCOUNTER → 2022-11-11 10:02 | Outpatient (CLI) | payer MEDICARE, SELFPAY ==
--- NOTE | 2022-11-11 10:31 | CT_ITS ---
FINAL REPORT TECHNIQUE: NASCET technique utilized for stenosis evaluation. CLINICAL HISTORY: ISCHEMIC ATTACK FINDINGS: Streak artifact is seen from a left upper anterior chest wall pacemaker. There is dense vascular calcification at the carotid bifurcations bilaterally. RIGHT CAROTID: There is focal stenosis at the origin of the right ICA measuring 80 in in 90%. Finding is best seen on image 61 of series 7 and image 63 of series 605. LEFT CAROTID: There is dense carotid calcification. There is 90% stenosis of the proximal left ICA. There is extensive mucoperiosteal thickening of the right maxillary sinus consistent with chronic maxillary sinusitis. VERTEBRALS: The vertebral arteries are patent. No significant stenosis is present. IMPRESSION: High-grade bilateral proximal internal carotid artery stenoses, left greater than right. Correlation with catheter directed angiography may be of value. Chronic right maxillary sinusitis. Reviewed, Interpreted and Dictated by Andres Argueta MD Transcribed by Kellie Lam Authenticated and [facility]
--- NOTE | 2022-11-11 10:31 | CT_ITS ---
FINAL REPORT TECHNIQUE: thin section axial CT with and without IV contrast supplemented with multiplanar 3-D reconstruction of the head. This study was performed with techniques to keep radiation doses as low as reasonably achievable, (ALARA)individualized dose reduction techniques using automated exposure control or adjustment of mA and/or kV according to the patient's size were employed. CLINICAL HISTORY: ISCHEMIC ATTACK FINDINGS: HEAD CT: There is mild diffuse atrophy. The ventricles are normal in size. There is no evidence of hemorrhage. No masses are identified. No extra-axial fluid is seen. There is mucoperiosteal thickening in the right maxillary sinus consistent with chronic sinusitis. CTA: The intracranial vessels are well opacified. There is a normal branching pattern. There is no significant stenosis, aneurysm or occlusion. IMPRESSION: No acute process. Chronic right maxillary sinusitis. Reviewed, Interpreted and Dictated by Andres Argueta MD Transcribed by Kellie Lam Authenticated and . [facility]
[2022-11-11 10:43] LABS: Blood Urea Nitrogen 12 mg/dl (7-17); Estimated Glomerular Filt Rate 97 ml/min (>60); GFR (African American) 118 ML/MIN (>60)
== END ==
PROVIDERS: PCP Nurse Practitioner Family; Visit Provider Nurse Practitioner Family
DX: G45.9 Transient cerebral ischemic attack, unspecified (principal)
CPT/HCPCS: 36415; 70496; 70498; 82565; 84520; Q9967

== ENCOUNTER 2024-04-21 08:00 | Outpatient (CLI) | payer MEDICARE, SELFPAY ==
[2024-04-21 08:15] VITALS: BMI 34.7
[2024-04-21 08:38] LABS: Basophils % 0.7 % (0.1-2.0); Eosinophils # 0.1 K/mm3 (0.0-0.4); Eosinophils % 2.5 % (0.1-12.0); Hematocrit 29.9 % (37.0-47.0); Mean Corpuscular Hemoglobin 22.7 pg (27.0-31.2); Mean Corpuscular Volume 75.7 fl (81-99); Mean Platelet Volume 8.7 fl (7.4-10.4); Monocytes # 0.3 K/mm3 (0.1-1.0); Monocytes % 6.6 % (1.7-9.3); Neutrophils # 3.3 K/mm3 (1.8-7.8); Neutrophils % 69.2 % (37.0-80.0); Platelet Count 227 K/mm3 (142-424); Red Blood Count 3.95 M/mm3 (4.20-5.40); Red Cell Distribution Width 22.1 % (11.5-17.5); White Blood Count 4.8 K/mm3 (4.8-10.8)
[2024-04-21] MEDS: SODIUM CHLORIDE 0.9% 50ML BAG 50 ML IV (08:45)
[2024-04-21] MEDS: SODIUM CHLORIDE 0.9% 10ML FLUSH SYRINGE 10 ML IV (08:45)
[2024-04-21] MEDS: IRON SUCROSE COMPLEX 200 MG in 0.9 % SODIUM CHLORIDE 100 ML 220 MG IV (08:45)
[2024-04-21 08:50] VITALS: BP 95/43; PULSE 67; RESP 18; TEMP 36.7; O2SAT 99
[2024-04-21 09:10] VITALS: BP 95/62; PULSE 68
[2024-04-21 09:32] VITALS: BP 93/48; PULSE 66
== END 2024-04-21 09:45 | disposition home or self-care (01) ==
LOC: INF 08:03
PROVIDERS: PCP Nurse Practitioner Family; Visit Provider Internal Medicine Medical Oncology
DX: D64.9 Anemia, unspecified (principal)
CPT/HCPCS: 85025; 96365; J1756

== ENCOUNTER 2024-04-27 11:30 | Outpatient (CLI) | payer MEDICARE, SELFPAY ==
[2024-04-27 11:57] VITALS: BP 105/64; PULSE 64; RESP 20; TEMP 36.4; O2SAT 98
[2024-04-27] MEDS: IRON SUCROSE COMPLEX 200 MG in 0.9 % SODIUM CHLORIDE 100 ML 220 MG IV (11:57)
[2024-04-27] MEDS: SODIUM CHLORIDE 0.9% 50ML BAG 50 ML IV (11:58)
[2024-04-27] MEDS: SODIUM CHLORIDE 0.9% 10ML FLUSH SYRINGE 10 ML IV (11:58)
[2024-04-27 12:45] VITALS: BP 107/66; PULSE 69; RESP 20; O2SAT 98
== END 2024-04-27 12:50 | disposition home or self-care (01) ==
LOC: INF 11:33
PROVIDERS: PCP Nurse Practitioner Family; Visit Provider Internal Medicine Medical Oncology
DX: D50.9 Iron deficiency anemia, unspecified (principal)
CPT/HCPCS: 96365; J1756

== ENCOUNTER 2024-05-04 11:27 | Outpatient (CLI) | payer MEDICARE, SELFPAY ==
[2024-05-04] MEDS: IRON SUCROSE COMPLEX 200 MG in 0.9 % SODIUM CHLORIDE 100 ML 220 MG IV (12:05)
[2024-05-04] MEDS: SODIUM CHLORIDE 0.9% 50ML BAG 50 ML IV (12:05)
[2024-05-04 12:10] VITALS: BP 91/45; PULSE 59; RESP 16; O2SAT 96
[2024-05-04 12:45] VITALS: BP 99/54; PULSE 60; RESP 16
== END 2024-05-04 13:00 | disposition home or self-care (01) ==
LOC: INF 11:28
PROVIDERS: PCP Nurse Practitioner Family; Visit Provider Internal Medicine Medical Oncology
DX: D50.9 Iron deficiency anemia, unspecified (principal)
CPT/HCPCS: 96365; J1756

== ENCOUNTER 2024-05-18 11:03 | Outpatient (CLI) | payer MEDICARE, SELFPAY ==
[2024-05-18 11:42] VITALS: BP 98/50; PULSE 59; RESP 20; TEMP 36.6; O2SAT 98
[2024-05-18] MEDS: IRON SUCROSE COMPLEX 200 MG in 0.9 % SODIUM CHLORIDE 100 ML 220 MG IV (11:42)
[2024-05-18 12:20] VITALS: BP 106/80; PULSE 60; RESP 20; O2SAT 98
[2024-05-18] MEDS: SODIUM CHLORIDE 0.9% 50ML BAG 50 ML IV (12:54)
[2024-05-18] MEDS: SODIUM CHLORIDE 0.9% 10ML FLUSH SYRINGE 10 ML IV (12:54)
== END 2024-05-18 12:20 | disposition home or self-care (01) ==
LOC: INF 11:05
PROVIDERS: PCP Nurse Practitioner Family; Visit Provider Internal Medicine Medical Oncology
DX: D50.9 Iron deficiency anemia, unspecified (principal)
CPT/HCPCS: 96365; J1756

== ENCOUNTER 2024-05-21 16:34 | Emergency (ER) | payer MEDICARE, SELFPAY ==
[2024-05-21 16:37] VITALS: BP 124/63; PULSE 86; RESP 14; TEMP 36.5; O2SAT 96; BMI 38.4
[2024-05-21 17:01] VITALS: BP 103/51; PULSE 97; RESP 15; O2SAT 95
--- NOTE | 2024-05-21 17:02 | ECG_ITS ---
APPROVED REPORT Exam: Resting ECG HR:89 bpm ECG Measurements Heart Rate 89 AXES QRSd 115 QRS 52 QT 402 T 130 QTc 449 Conclusion Atrial fibrillation Septal and anterior T wave inversions without reciprocal change Electronically signed by : HOOD MARTE, 05/21/2024 20:58:57
--- NOTE | 2024-05-21 17:03 | XR_ITS ---
PROCEDURE INFORMATION: Exam: XR Left Forearm Exam date and time: 05/21/2024 5:01 PM Age: 78 years old Clinical indication: Pain; Other: Bruising; Lower or forearm; Left; Additional info: Brusing, pain TECHNIQUE: Imaging protocol: Radiologic exam of the left forearm. Views: 2 views. COMPARISON: CR XR WRIST LT MIN 3V 05/21/2024 5:01 PM FINDINGS: Bones/joints: No fracture or dislocation. No significant arthropathy. Osteopenia. Soft tissues: Dorsal distal soft tissue swelling. IMPRESSION: Dorsal distal soft tissue swelling without evidence of a fracture.
--- NOTE | 2024-05-21 17:03 | XR_ITS ---
PROCEDURE INFORMATION: Exam: XR Left Wrist Exam date and time: 05/21/2024 5:01 PM Age: 78 years old Clinical indication: Pain; Other: Bruisiing; Wrist; Left; Additional info: Brusing and pain dorsally TECHNIQUE: Imaging protocol: Radiologic exam of the left wrist. Views: 3 or more views. COMPARISON: CR XR FOREARM LT 2V 05/21/2024 5:01 PM FINDINGS: Bones/joints: No fracture or dislocation. No significant arthropathy. Osteopenia. Soft tissues: Dorsal distal forearm soft tissue swelling. IMPRESSION: Dorsal distal forearm soft tissue swelling without evidence of a fracture.
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
--- NOTE | 2024-05-21 17:12 | PC.NURSE ---
xray at bedside
[2024-05-21 17:23] LABS: Albumin Level 4.2 g/dl (3.5-5.0); Basophils # 0.1 K/mm3 (0-0.2); Basophils % 0.9 % (0.1-2.0); Chloride 107 mmol/L (98-107); Eosinophils # 0.1 K/mm3 (0.0-0.4); Eosinophils % 1.2 % (0.1-12.0); Hematocrit 38.3 % (37.0-47.0); Hemoglobin 12.2 g/dL (12.2-16.2); Lymphocytes % 16.9 % (10-50); Mean Corpuscular Hemoglobin 27.6 pg (27.0-31.2); Mean Corpuscular Volume 86.4 fl (81-99); Mean Platelet Volume 7.7 fl (7.4-10.4); Monocytes # 0.3 K/mm3 (0.1-1.0); Monocytes % 4.4 % (1.7-9.3); Neutrophils # 4.7 K/mm3 (1.8-7.8); Neutrophils % 76.8 % (37.0-80.0); Platelet Count 162 K/mm3 (142-424); Red Blood Count 4.43 M/mm3 (4.20-5.40); Sodium 139 mmol/L (136-145); White Blood Count 6.1 K/mm3 (4.8-10.8)
[2024-05-21 17:24] LABS: Potassium 3.4 mmoL/L (3.5-5.1)
[2024-05-21 17:26] LABS: Alanine Aminotransferase 44 U/L (12-78); Alkaline Phosphatase 124 U/L (38-126); Anion Gap 13.4 mEq/L (5-15); Aspartate Amino Transferase 52 U/L (14-36); Bilirubin,Total 0.5 mg/dl (0.2-1.3); Blood Urea Nitrogen 17 mg/dl (7-17); Carbon Dioxide 22 mmol/L (22.0-30.0); Creatinine Clearance Estimated 72 mL/min (50-200); Estimated Glomerular Filt Rate 70 ml/min (>60); GFR (African American) 84 ML/MIN (>60)
[2024-05-21 17:27] LABS: Albumin/Globulin Ratio 1.6 (1.1-1.8); Calcium 8.9 mg/dl (8.4-10.2); Globulin 2.7 g/dL (1.3-3.2); Glucose 338 mg/dl (74-100); Total Protein,Serum 6.9 g/dl (6.3-8.2)
[2024-05-21 17:29] LABS: Salicylate < 1.0 mg/dL (2.0-20.0)
[2024-05-21 17:30] VITALS: BP 114/54; RESP 21
[2024-05-21 17:30] LABS: Activated Partial Thrombo Time 28.5 seconds (22.8-30.6); INR 0.97 (0.9-1.1); Prothrombin Time 10.9 seconds (10.1-12.5)
[2024-05-21 18:00] VITALS: BP 112/49; RESP 17
[2024-05-21 18:35] VITALS: BP 112/49; PULSE 90; RESP 14; TEMP 36.7
[2024-05-21 20:47] LABS: HIV (1&2) Antibody Rapid NONREACTIVE (NONREACTIVE)
[2024-05-23 08:19] LABS: HCV Ab Non Reactive (Non Reactive)
== END 2024-05-21 18:36 | disposition home or self-care (01) ==
PROVIDERS: Emergency Provider Emergency Medicine; PCP Nurse Practitioner Family
DX: R23.3 Spontaneous ecchymoses (principal); S60.212A Contusion of left wrist, initial encounter; S40.022A Contusion of left upper arm, initial encounter
CPT/HCPCS: 73090; 73110; 80053; 80329; 85025; 85610; 85730; 86803; 87389; 93005; 99284

== ENCOUNTER 2024-06-26 08:39 | Day surgery (SDC) | payer MEDICARE, SELFPAY ==
--- NOTE | 2024-06-26 08:56 | P.PNANES_ITS ---
[facility] Disclaimer: The information contained in this section may have been updated after the patient was seen, as this information can be updated by other users. Medical History Gastroesophageal reflux disease Cardiac pacemaker in situ Chronic a-fib Abnormal Holter exam Family History Other No significant family history Social History Smoking Status: Former smoker tobacco type: cigarettes second hand exposure: No alcohol intake: never counseling provided: none substance use type: denies use current occupational status: retired Travel in the last 8 weeks: Inside the [place] household members: none housing: house current occupational exposures/hazards: No caffeine: Yes [facility] Anesthesia Checklist Patient Identification Patient Identification: Arm Band and Verbal (Name & ) Structural Data Admitted From: Home Planned Operative Procedure/s: EGD/Colonoscopy Consent for Planned Operative Procedure(s) Verified: Yes Verified Documents: Surgical Consent, History and Physical and Cardiac Clearance NPO Status Verified Time NPO: 00:00 Additional verifications Anesthesia Reactions: No Hx Blood Transfusions: No Blood Transfusion Reaction: No Airway Assessment Mallampati Score:: Class II C-Spine Mobility Assessed: Yes TMJ Mobility Assessed: Yes Dentition: Dentures-poor fitting (Removed) Neurological Assessment Level of Consciousness: Awake Hx Seizures: No Numbness or tingling in extremities: No Anesthesia Plan Anesthesia Risk discussed: Yes Anesthesia Plan: Verified ASA Class: III Anesthesia Type: MAC
[2024-06-26 09:09] VITALS: BMI 36.6
[2024-06-26 09:18] VITALS: BP 118/72; PULSE 69; RESP 18; TEMP 36.2; O2SAT 98
[2024-06-26] MEDS: LACTATED RINGERS 1000ML 1,000 ML 25 ML IV (09:23)
[2024-06-26 09:31] LABS: POC Glucose,Bedside 120 (70-110)
--- NOTE | 2024-06-26 09:32 | P.HP_ITS ---
History of Present Illness *Admission Date: 06/26/24 *Reason for visit:: Bright red blood per rectum-iron deficiency anemia *History of present illness: Mrs. Bermudez is a 79-year-old female who is here for diagnostic panendoscopy secondary to iron deficiency anemia/microcytic anemia and spotting of blood. The examination is deemed medically necessary for panendoscopy. The patient has been seen, interviewed and examined prior to the procedure by both myself and the anesthesia provider. [facility] Disclaimer: The information contained in this section may have been updated after the michelle ent was seen, as this information can be updated by other users. Medical History Gastroesophageal reflux disease Cardiac pacemaker in situ Chronic a-fib Abnormal Holter exam Family History Other No significant family history Social History (Updated 06/26/24 @ 09:09 by Jane Dixon RN) Smoking Status: Former smoker tobacco type: cigarettes second hand exposure: No alcohol intake: never counseling provided: none substance use type: denies use current occupational status: retired Travel in the last 8 weeks: None household members: none housing: house current occupational exposures/hazards: No caffeine: Yes Other Medical History Have you received the Flu Vaccine for this season: Yes Have you received the Pneumonia Vaccine: Yes Review of Systems Review of Systems Review of systems (narrative): Negative *Cardiovascular Comments: Negative *Gastrointestinal Comments: Negative *Genitourinary Comments: Negative *Musculoskeletal Comments: Negative *Neurologic Comments: Negative Meds Home Medications and Allergies Home Medications ?Medication ?Instructions ?Recorded ?Confirmed ?Type escitalopram oxalate 20 mg tablet 30 mg PO DAILY mood 03/25/18 06/20/24 History (Lexapro) atorvastatin 40 mg tablet 40 mg PO DAILY Cholesterol 11/18/18 06/20/24 History furosemide 40 mg tablet (Lasix) 40 mg PO DAILY Fluid 12/27/18 06/20/24 History amitriptyline 10 mg tablet 30 mg PO HS sleep 03/31/21 06/20/24 History cariprazine 1.5 mg capsule 1.5 mg PO DAILY mood 03/31/21 06/20/24 History (Vraylar) metoprolol succinate 100 mg 100 mg PO DAILY High blood pressure 06/04/21 06/26/24 History tablet,extended release 24 hr mupirocin 2 % topical ointment 1 applicatio topical TID . 06/04/21 06/20/24 History potassium chloride 8 mEq 8 meq PO DAILY Supplement #30 tabs 06/09/21 06/20/24 Rx tablet,extended release pantoprazole 40 mg tablet,delayed See Rx Instructions .Route 08/24/22 06/20/24 Rx release .COMPLEX #30 tabs alprazolam 1 mg tablet 1 mg PO TID Anxiety 09/11/22 06/20/24 History memantine 28 mg capsule 28 mg PO DAILY 09/11/22 06/20/24 History sprinkle,extended release 24hr multivitamin (Daily Multi-Vitamin 1 tab PO DAILY 10/02/22 06/20/24 History tablet) famotidine 40 mg tablet 40 mg PO DAILY 04/13/24 06/20/24 History metformin 500 mg tablet,extended 500 mg PO DAILY 04/13/24 06/20/24 History release 24 hr potassium chloride 20 mEq 20 meq PO BID 04/13/24 06/20/24 History tablet,extended release(part/cryst) ranolazine 500 mg tablet,extended 500 mg PO BID 04/13/24 06/20/24 History release,12 hr levothyroxine 75 mcg tablet 75 mcg PO DAILY 06/20/24 06/20/24 History memantine 10 mg tablet 10 mg PO DAILY 06/20/24 06/20/24 History spironolactone 50 mg tablet 50 mg PO DAILY 06/20/24 06/20/24 History New Prescriptions to Start Prescriptions: Allergies Allergy/AdvReac Type Severity Reaction Status Date / Time morphine (MORPHINE) Allergy Severe ABD PAIN Verified 06/20/24 08:39 tramadol (TRAMADOL) Allergy Intermediate ABDOMINAL Verified 06/20/24 08:39 PAIN hydrocodone (HYDROCODONE) Allergy Unknown ABD PAIN Verified 06/20/24 08:39 hydromorphone (From DILAUDID) Allergy Unknown ABD PAIN Verified 06/20/24 08:39 meperidine (From DEMEROL) Allergy Unknown ABD PAIN Verified 06/20/24 08:39 oxycodone Allergy Other Verified 06/20/24 08:39 nitroglycerin AdvReac hypotension Verified 06/20/24 08:39 Exam Data for Last 24 hours Vital signs and Labs for Last 24 Hours: Temp Pulse Resp BP Pulse Ox O2 Del Method 97.1 F L 69 18 118/72 98 Room Air 06/26/24 09:18 06/26/24 09:18 06/26/24 09:18 06/26/24 09:18 06/26/24 09:18 06/26/24 09:18 Laboratory Results - last 24 hr 06/26/24 09:16: POC Glucose 120 H I & O for Last 24 hours: Intake & Output 06/23/24 06/24/24 06/25/24 06/26/24 23:59 23:59 23:59 23:59 Weight 200 lb *Routine HEENT Exam Head: Present normocephalic Eye: Present EOMI and PERRL ENT: Present mucous membranes moist *Routine Neck Exam Neck: Present supple *Routine Respiratory Exam Respiratory: Present CTA bilaterally *Routine Cardiovascular Exam Cardiovascular: Present RRR *Routine Abdominal Exam Abdominal: Present soft and normoactive bowel sounds; Absent tenderness *Routine Rectal Exam Rectal:: deferred *Routine Genitalia Exam Genitalia:: deferred *Routine Extremities Exam Extremities: Absent cyanosis, clubbing or edema *Routine Skin Exam Skin: Present warm; Absent rash *Routine Neurological Exam Neurological: Present alert and oriented X3 Assessment and Plan *Assessment and plan (1) Iron deficiency anemia: Status: Acute Category: Medical Code(s): D50.9 - Iron deficiency anemia, unspecified (2) Bright red blood per rectum: Status: Acute Category: Medical Code(s): K62.5 - Hemorrhage of anus and rectum (3) Constipation: Status: Acute Category: Medical Code(s): K59.00 - Constipation, unspecified (4) Abnormal weight loss: Status: Acute Category: Medical Code(s): R63.4 - Abnormal weight loss Plan A/P: 1. Iron deficiency anemia/microcytic anemia with spotting of blood is the preprocedural diagnosis. The patient will be anesthetized/sedated using MAC sedation. The patient has been seen and examined. Cardiac and lung assessment prior to the examination is stable. Proceed with planned panendoscopy
[2024-06-26 09:35] VITALS: O2SAT 98
--- NOTE | 2024-06-26 09:35 | HMH.PROCNOTE ---
[facility] Procedure Note Date: 06/26/24 Time: 09:42 Procedure Note:: Upper Endoscopy Procedure Report: Esophagogastrojejunnoscopy with cold biopsies Endoscopost: Gregor Salmeron II, MD Referring Physician: Nelson Gonzalez M.D. Date of Procedure: June 26, 2024 Equipment: Olympus GIF 190 standard upper endoscope Sedation: MAC sedation Indications: Mrs. Bermudez is a 79-year-old female with microcytic/iron deficiency anemia. Her hemoglobin and hematocrit on 04/21/2024 were 9.0 and 29.9 with MCV of 75.7. I do not see iron studies. The patient does report intermittent spotting of bright red blood on the tissue. She has lost 10 pounds. She does get some heartburn. She has had some chronic constipation. Her last upper endoscopy was 10 to 15 years ago in [place]. She does state that she had a colonoscopy 2 or 3 years ago elsewhere. She reports no abdominal pain or change in bowel habits. She is on Plavix and baby aspirin. Procedure: Prior to the procedure, a history and physical exam was performed, and patient's medications and allergies were reviewed. The risks, benefits and alternatives of the sedation and procedure were discussed with the patient. All questions were answered and informed consent was obtained. The patient was brought to the procedure room. Patient identification and proposed procedure were verified by the physician and the nurse. The patient was placed in a left lateral decubitus position and the scope was passed under direct vision. Throughout the procedure, the patient's blood pressure, pulse, and oxygen saturations were monitored continuously. The upper GI endoscopy was accomplished without difficulty. The patient tolerated the procedure well. Findings: The scope was passed directly into the upper esophagus and advanced to the efferent limb of jejunum. The jejunal folds/conniventes were normal. The scope was withdrawn to the Liv anastomosis and the afferent limb was normal as well. The stomal anastomosis was widely patent and there were no ulcerations. There was a small gastric pouch with minimal gastritis/pouchitis and biopsies were obtained from the gastric pouch. There was a small 1 to 2 cm hiatal hernia. There were no ulcerations or erosions. The scope was withdrawn into the esophagus. There was no evidence of reflux esophagitis or Koroma's. There were tertiary contractions and evidence of mild esophageal dysmotility. The remainder of the esophageal mucosa was normal. Impression: 1. 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 Very mild gastritis of gastric pouch Plan: I do feel that the primary reason for the patient's iron deficiency is related to the Liv-en-Y gastric bypass. I do feel that the Plavix may be playing some role with some hemorrhoidal bleeding. Iron deficiency is one of the most common nutritional problems following bariatric surgery and results in anemia. Iron is primarily absorbed in the duodenum and proximal jejunum part of the upper intestine, and bariatric bypass operations primarily Liv-en-Y gastric bypass, exacerbate this problem. In addition, dietary iron is commonly bound to protein and cleaved by the action of gastric acid in the stomach. Because there is only a small amount of gastric acid-producing tissue in the Liv-en-Y gastric bypass gastric or stomach pouch, iron absorption may be further reduced. Management of iron deficiency in most persons with Liv-en-Y gastric bypass must be in the form of intravenous iron infusion. I will proceed with diagnostic colonoscopy.
--- NOTE | 2024-06-26 09:43 | P.PCN_ITS ---
[facility] Procedure Note Date: 06/26/24 Time: 09:46 Procedure Note:: Flexible sigmoidoscopy?unprepped colonoscopy Endoscopist: Gregor Salmeron II, MD Referring physician: Nelson Gonzalez M.D. Date of Procedure: June 26, 2024 Equipment: Olympus 190 variable stiffness pediatric colonoscope Sedation: MAC sedation Indication: Mrs. Bermudez is a 79-year-old female who is here for diagnostic panendoscopy. The patient has had microcytic anemia/iron deficiency anemia and her hemoglobin hematocrit were 9.0 and 29.9 on 04/21/2024. She does report some spotting of bright red blood attributable to hemorrhoids. She does have some hemorrhoidal prolapse. She reports some chronic constipation. She did have a colonoscopy elsewhere 2 to 3 years ago. Her upper endoscopy showed a Liv-en-Y gastric bypass which may be the etiology of her iron deficiency. The patient has had a 10 pound weight loss. She reports no abdominal pain or family history of colon cancer. She is on Plavix and baby aspirin. Procedure: Prior to the procedure, a history and physical exam was performed, and patient's medications and allergies were reviewed. The risks, benefits and alternatives of the sedation and procedure were discussed with the patient. All questions were answered and informed consent was obtained. The patient was brought to the procedure room. Patient identification and proposed procedure were verified by the physician and the nurse. The patient was placed in a left lateral decubitus position and the scope was passed under direct vision. Throughout the procedure, the patient's blood pressure, pulse, and oxygen saturations were monitored continuously. The colonoscopy was accomplished without difficulty. The patient tolerated the procedure well. Findings: On digital rectal examination there were some prolapsing hemorrhoids. There was normal rectal tone. The scope was then inserted through the anal canal into the rectum and advanced to 25 cm. There was abundant brown/dark brown liquid stool impairing visualization of the mucosa. The preparation was extremely poor. The procedure was aborted. Impression: 1. Poor bowel preparation Plan: I will recommend Hemoccult testing. If the patient is Hemoccult positive, I would proceed with diagnostic colonoscopy. I do suspect that her iron deficiency is related to the Liv-en-Y gastric bypass and poor iron absorption.
[2024-06-26 09:50] VITALS: BP 96/52; PULSE 67; RESP 16; TEMP 36.7; O2SAT 96
[2024-06-26 10:00] VITALS: BP 104/55; PULSE 64; RESP 15; O2SAT 96
[2024-06-26 10:10] VITALS: BP 98/53; PULSE 64; RESP 15; O2SAT 96
[2024-06-26 10:20] VITALS: BP 103/46; PULSE 60; RESP 15; TEMP 36.6; O2SAT 97
[2024-06-26 13:29] LABS: Occult Blood,Stool Negative (Negative)
== END 2024-06-26 10:20 | disposition home or self-care (01) ==
PROVIDERS: PCP Nurse Practitioner Family; Visit Provider Internal Medicine Gastroenterology
PROC: 0DJ08ZZ Inspection of Upper Intestinal Tract, Via Natural or Artificial Opening Endoscopic (ICD-10-PCS; CPT 43235; principal; 2024-06-26 10:00)
DX: D50.9 Iron deficiency anemia, unspecified (principal); K62.5 Hemorrhage of anus and rectum; K59.00 Constipation, unspecified; R63.4 Abnormal weight loss; Z79.84 Long term (current) use of oral hypoglycemic drugs; K44.9 Diaphragmatic hernia without obstruction or gangrene; K22.4 Dyskinesia of esophagus; K29.70 Gastritis, unspecified, without bleeding; Z53.8 Procedure and treatment not carried out for other reasons; Z68.36 Body mass index [BMI] 36.0-36.9, adult
CPT/HCPCS: 43239; 45378; 82272; 82962; 88305; G0328; J7120

== ENCOUNTER 2024-11-23 12:09 | Emergency (ER) | payer MEDICARE, SELFPAY ==
[2024-11-23 12:15] VITALS: BP 101/61; PULSE 75; RESP 18; TEMP 36.8; O2SAT 97; BMI 34.7
[2024-11-23 12:26] LABS: Influenza A, PCR Not Detected (NotDetected); Influenza B, PCR Not Detected (NotDetected)
--- NOTE | 2024-11-23 12:27 | XR_ITS ---
FINAL REPORT TECHNIQUE: Chest PA & Lateral CLINICAL HISTORY: Cough for 1 week COMPARISON: 07/26/2024 FINDINGS: 2 views of the chest were performed. The heart size is normal. There is a left-sided pacemaker. The patient is status post median sternotomy. There is scarring at the left lung base. There is no acute cardiopulmonary process. There are no pleural effusions. There is no pneumothorax. The bony thorax appears intact. IMPRESSION: No acute cardiopulmonary process. Reviewed, Interpreted and Dictated by Andres Argueta MD Transcribed by Kate Polanco Authenticated and [facility]
[2024-11-23 13:26] LABS: Coronavirus 19, PCR Detected (NotDetected)
--- NOTE | 2024-11-23 13:32 | PC.NURSE ---
Pt to triage for assessment by provider.
[2024-11-23] MEDS: DEXAMETHASONE 4MG TABLET 10 MG PO (13:33)
[2024-11-23] MEDS: DOXYCYCLINE HYCL 100 MG TABLET PO (13:34)
--- NOTE | 2024-11-23 13:49 | HMH.EDGENADL ---
Discharge Plan Disposition Patient Disposition: Home, Self-Care Prescriptions Prescriptions: New doxycycline hyclate 100 mg capsule 100 mg PO BID 5 Days Qty: 10 0RF No Action escitalopram oxalate [Lexapro] 20 mg tablet 30 mg PO DAILY multivitamin [Daily Multi-Vitamin] Tablet 1 tab PO DAILY potassium chloride 20 mEq tablet,ER particles/crystals 20 meq PO BID famotidine 40 mg tablet 40 mg PO DAILY metformin 500 mg tablet extended release 24 hr 500 mg PO DAILY ranolazine 500 mg tablet extended release 12 hr 500 mg PO BID furosemide [Lasix] 40 mg tablet 40 mg PO DAILY amitriptyline 10 mg tablet 30 mg PO HS Patient Comments: TAKE 3 TABS BY MOUTH EVERY NIGHT AT BEDTIME. Vraylar 1.5 mg capsule 1.5 mg PO DAILY alprazolam 1 mg tablet 1 mg PO TID potassium chloride 8 mEq tablet extended release 8 meq PO DAILY Qty: 30 5RF memantine 28 mg capsule,sprinkle,ER 24hr 28 mg PO DAILY levothyroxine 75 mcg tablet 75 mcg PO DAILY spironolactone 50 mg tablet 50 mg PO DAILY memantine 10 mg tablet 10 mg PO DAILY pantoprazole 40 mg tablet,delayed release (DR/EC) See Rx Instructions .ROUTE .COMPLEX Qty: 30 4RF Dose Instruction: TAKE 1 TABLET BY MOUTH ONCE DAILY Rx Instructions: TAKE 1 TABLET BY MOUTH ONCE DAILY atorvastatin 40 MG tablet 40 mg PO DAILY metoprolol succinate 100 MG tablet extended release 24 hr 100 mg PO DAILY mupirocin 22 GM ointment 1 applicatio topical TID Referrals Follow up/Referrals: Alis Umana [Primary Care Provider] - See instructions Activity Restrictions/Add. Instructions Additional Instructions/Restrictions: Doxycycline twice daily for 5 days. While taking doxycycline, limit sunlight exposure. It can cause severe sunburns even if you do not typically get sunburn. Be sure to wear hats, long sleeves, sunscreen if you are out in the sun for prolonged periods of time while taking doxycycline. Call your family doctor to establish care for this visit to the emergency department and schedule follow-up within 48 hours to ensure improvement. If you have any worsening of your condition or any other concerning signs or symptoms, return to the emergency department or your primary care doctor for further evaluation. Clinical Impressions Clinical Impression: Pneumonia, COVID-19 Print Language Print Language: Upper Sorbian Discharge ED Provider: Laurent,Ross A General Adult HPI General Chief complaint: Upper Respiratory Infection Stated complaint: severe cough Time Seen by Provider: 11/23/24 13:29 Mode of Arrival: Wheelchair Source of Information: Patient Description of Symptoms (Recalled from ER Triage Doc. by RN): Pt presents for evaluation of cough x 1 week. PT states she is not able to wait until wednesday to be seen History of Present Illness HPI narrative: Please note that above description of symptoms, in this electronic medical record under categorization of recalled from ER triage doctor by RN are reflective of an initial nursing assessment, however, is not reflective of my full history and physical exam that was personally taken and clarified. Consequentially, this preceding description of symptoms, which may include the patient's categorized chief complaint in the EMR, do not reflect my personal clinical impression, and the ultimate description of history of present illness and patient stated complaints should be deferred to this section of the note. Unless stated otherwise or congruent with this section of the note, additional signs, symptoms, or incongruence should be interpreted as inaccurate with my clinical impression. Related Data Home Medications ?Medication ?Instructions ?Recorded ?Confirmed escitalopram oxalate 20 mg tablet 30 mg PO DAILY mood 03/25/18 06/20/24 (Lexapro) atorvastatin 40 mg tablet 40 mg PO DAILY Cholesterol 11/18/18 06/20/24 furosemide 40 mg tablet (Lasix) 40 mg PO DAILY Fluid 12/27/18 06/20/24 amitriptyline 10 mg tablet 30 mg PO HS sleep 03/31/21 06/20/24 cariprazine 1.5 mg capsule 1.5 mg PO DAILY mood 03/31/21 06/20/24 (Vraylar) metoprolol succinate 100 mg 100 mg PO DAILY High blood pressure 06/04/21 06/26/24 tablet,extended release 24 hr mupirocin 2 % topical ointment 1 applicatio topical TID . 06/04/21 06/20/24 alprazolam 1 mg tablet 1 mg PO TID Anxiety 09/11/22 06/20/24 memantine 28 mg capsule 28 mg PO DAILY 09/11/22 06/20/24 sprinkle,extended release 24hr multivitamin (Daily Multi-Vitamin 1 tab PO DAILY 10/02/22 06/20/24 tablet) famotidine 40 mg tablet 40 mg PO DAILY 04/13/24 06/20/24 metformin 500 mg tablet,extended 500 mg PO DAILY 04/13/24 06/20/24 release 24 hr potassium chloride 20 mEq 20 meq PO BID 04/13/24 06/20/24 tablet,extended release(part/cryst) ranolazine 500 mg tablet,extended 500 mg PO BID 04/13/24 06/20/24 release,12 hr levothyroxine 75 mcg tablet 75 mcg PO DAILY 06/20/24 06/20/24 memantine 10 mg tablet 10 mg PO DAILY 06/20/24 06/20/24 spironolactone 50 mg tablet 50 mg PO DAILY 06/20/24 06/20/24 Previous Rx's ?Medication ?Instructions ?Recorded potassium chloride 8 mEq 8 meq PO DAILY Supplement #30 tabs 06/09/21 tablet,extended release pantoprazole 40 mg tablet,delayed See Rx Instructions .Route 08/24/22 release .COMPLEX #30 tabs doxycycline hyclate 100 mg capsule 100 mg PO BID 5 days #10 caps 11/23/24 Allergies Allergy/AdvReac Type Severity Reaction Status Date / Time morphine (MORPHINE) Allergy Severe ABD PAIN Verified 06/20/24 08:39 tramadol (TRAMADOL) Allergy Intermediate ABDOMINAL Verified 06/20/24 08:39 PAIN hydrocodone (HYDROCODONE) Allergy Unknown ABD PAIN Verified 06/20/24 08:39 hydromorphone (From DILAUDID) Allergy Unknown ABD PAIN Verified 06/20/24 08:39 meperidine (From DEMEROL) Allergy Unknown ABD PAIN Verified 06/20/24 08:39 oxycodone Allergy Other Verified 06/20/24 08:39 nitroglycerin AdvReac hypotension Verified 06/20/24 08:39 [facility] Disclaimer: The information contained in this section may have been updated after the patient was seen, as this information can be updated by other users. Medical History Gastroesophageal reflux disease Cardiac pacemaker in situ Chronic a-fib Abnormal Holter exam Family History Other No significant family history Social History (Updated 06/26/24 @ 09:09 by Jane Dixon RN) Smoking Status: Never smoker second hand exposure: No alcohol intake: never counseling provided: none substance use type: denies use current occupational status: retired Travel in the last 8 weeks: None household members: none housing: house current occupational exposures/hazards: No caffeine: Yes Have you lived/traveled outside [place] in past 30 days?: No Contact w/someone who lives/traveled outside US past 30 days?: No Exposure to someone with infectious disease in past 14 days?: No Do you have a fever (greater than 100.4 F or 38 C)?: No Have you tested positive for COVID-19: No Exposed to someone with COVID-19 in past 14 days?: No Do you have a sore throat?: No Do you have a cough?: Yes Do you have any weakness?: No Do you have any diarrhea?: No Are you experiencing any unusual bleeding?: No Do you have any muscle aches/pain?: No Do you have any abdominal pain?: No Are you experiencing loss of taste or smell?: No Other Medical History Have you received the Flu Vaccine for this season: Yes Have you received the Pneumonia Vaccine: Yes ROS Obtained: Yes All systems reviewed & no additional complaints except as documented Physical Exam General General appearance: alert Head Head exam: atraumatic and normocephalic Eye Eye exam: Present normal appearance, PERRL and EOMI Neck Neck exam: Present normal inspection, full ROM and trachea midline Respiratory Respiratory exam: Present wheezes (right posteromedial rhonchi); Absent respiratory distress, stridor, accessory muscle use or prolonged expiratory phase Cardiovascular Cardiovascular exam: Present regular rate, normal rhythm and other (Pulses equal symmetric in upper and lower extremities) Abdominal Exam Abdominal exam: Present soft; Absent distention, tenderness or pulsatile mass Extremities Exam Extremities exam: Absent edema Neurological Exam Neurological exam: Present alert, oriented X3 and CN II-XII intact; Absent motor sensory deficit Skin Skin exam: Present warm and dry; Absent diaphoresis or erythema Medical Decision Making Medical Records Medical records reviewed: Yes I reviewed the patient's medical records. Screening: Per USPSTF and CDC recommendations, given the prevalence of disease in our region, it is our hospital?s policy to screen for HIV and viral Hepatitis for all patients aged 18 and over and those with ongoing risk factors. Brian Inquiry Pt receiving controlled substance: No Brian was queried for this patient: No Vital Signs: 11/23/24 12:15 11/23/24 13:57 Temperature 98.3 F 98.4 F Temperature Source Oral Oral Pulse Rate 79 Pulse Rate [Right] 75 Respiratory Rate 18 18 Blood Pressure 101/64 L Blood Pressure [Right Arm] 101/61 L Blood Pressure Mean [Right Arm] 74 Blood Pressure Source Automatic Cuff Blood Pressure Source [Right Arm] Automatic Cuff Blood Pressure Position Sitting Blood Pressure Position [Right Arm] Sitting 02 Sat by Pulse Oximetry 97 Oxygen Delivery Method Room Air Room Air Lab Data Lab Results 11/23/24 12:19: SARS-CoV-2 (PCR) Detected A, Influenza A Untype (PCR) Not detected, Influenza Type B (PCR) Not detected Orders (Tests/Meds): ED MEDICATIONS Discontinued Medications Generic Name Dose Route Start Last Admin Trade Name Sigrid PRN Reason Stop Dose Admin Dexamethasone 10 mg 11/23/24 13:31 11/23/24 13:33 Dexamethasone 4mg Tablet PO 11/23/24 13:32 10 mg ONCE ONE Administration Doxycycline Hyclate 100 mg 11/23/24 13:31 11/23/24 13:34 Doxycycline Hycl 100 Mg Tablet PO 11/23/24 13:32 100 mg ONCE ONE Administration ORDERS Category Date Time Status CXR 2 view (NOT portable) [XR chest 2V] Stat Exams 11/23/24 12:27 Taken Rapid PCR Covid and Flu A/B Stat Lab 11/23/24 12:19 Completed Medical Decision Narrative: 79-year-old female presenting cough that is largely nonproductive. Has history of hypertension lipidemia, CAD status post stenting and CABG, atrial fibrillation. States that she has been coughing for the last 2 or 3 days. Nonproductive, but worse at night. No fevers or chills, nausea or vomiting, syncopal episodes, chest pain. Came in for further evaluation. No sick contacts that she knows of. History obtained with patient and family. On arrival, very clinically well. Blood pressure borderline low, but on chart review this appears to be pretty normal for her. She is nontachycardic and not requiring oxygen. She does have wheezes and rhonchi in the posterior medial aspect of her right lung. Chest x-ray and swab to be obtained. Patient COVID-positive on swab, chest x-ray with right perihilar opacity consistent with early pneumonia. Given first dose of doxycycline and Decadron here in the emergency department. Because patient at baseline without signs or symptoms of clinical decompensation, deemed appropriate for discharge. Results were relayed to patient who voiced understanding and were agreeable to outpatient management and follow up. I discussed my clinical impression with patient and answered all questions. At this time, the evidence for any other entities in the differential is insufficient to warrant any further testing or ED observation. This was explained as well. Advisory was given that persistent or worsening symptoms require further evaluation. I confirmed the understanding of this discussion. 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 Electronic local flatbed driver of the spoken language may permit errors. Although I have reviewed the note, some errors may still exist. Critical Care Critical Care Time Critical Care Time: No
[2024-11-23 13:57] VITALS: BP 101/64; PULSE 79; RESP 18; TEMP 36.9; O2SAT 99
== END 2024-11-23 13:57 | disposition home or self-care (01) ==
PROVIDERS: Emergency Provider Emergency Medicine; PCP Nurse Practitioner Family
DX: U07.1 COVID-19 (principal); J12.82 Pneumonia due to coronavirus disease 2019; R06.2 Wheezing
CPT/HCPCS: 71046; 87636; 99283; J8540

== ENCOUNTER 2025-01-26 14:05 | Outpatient (CLI) | payer MEDICARE, SELFPAY ==
--- OUTSIDE RECORDS SUMMARY | 2025-01-26 14:08 | XMS_ITS | Clinical Summary ---
Author Organization [facility] Address [address] [place] [address] Care Team Providers Care Construction Equipment Technician Name Role Phone Alis Umana APRN Primary Care Provider [phone] Allergies Active Allergy Reactions Criticality Noted Date Comments Nitroglycerin Other - please docum ent in the comment field Low 12/31/2022 Severe hypotension Medications amitriptyline (Elavil) 10 MG tablet Take 3 tablets (30 mg) by mouth every night. 11/16/2022 Active ALPRAZolam (Xanax) 1 MG tablet Take 1 tablet (1 mg) by mouth 3 (three) times a day if needed. 12/04/2022 Active pantoprazole (Protonix) 40 MG EC tablet Take 1 tablet (40 mg) by mouth 1 (one) time each day. 11/28/2022 Active atorvastatin (Lipitor) 40 MG tablet Take 1 tablet (40 mg) by mouth 1 (one) time each day. 09/14/2022 Active ranolazine (Ranexa) 500 MG 12 hr tablet Take 1 tablet (500 mg) by mouth 2 (two) times a day. 09/21/2022 Active escitalopram (Lexapro) 20 MG tablet Take 1 tablet (20 mg) by mouth 1 (one) time each day. 09/11/2022 Active Vraylar 3 MG capsule Take 1 capsule (3 mg) by mouth 1 (one) time each day. 11/21/2022 Active famotidine (Pepcid) 40 MG tablet Take 1 tablet (40 mg) by mouth 2 (two) times a day. 11/12/2022 Active spironolactone (Aldactone) 50 MG tablet Take 1 tablet (50 mg) by mouth 2 (two) times a day. 11/14/2022 Active Memantine HCl ER 28 MG capsule sustained-relea se 24 hr Take 1 tablet by mouth 1 (one) time each day. 10/21/2022 Active metoprolol succinate XL (Toprol-XL) 100 MG 24 hr tablet Take 1 tablet (100 mg) by mouth 1 (one) time each day. 11/16/2022 Active furosemide (Lasix) 40 MG tablet Take 1 tablet (40 mg) by mouth 1 (one) time each day. 11/02/2022 Active levothyroxine (Synthroid, Levoxyl) 75 MCG tablet Take 1 tablet (75 mcg) by mouth 1 (one) time each day. 09/21/2022 Active clopidogrel (Plavix) 75 MG tablet Take 1 tablet (75 mg) by mouth 1 (one) time each day. 11/28/2022 Active mirtazapine (Remeron) 45 MG tablet Take 1 tablet (45 mg) by mouth 1 (one) time each day. 10/21/2022 Active aspirin 81 MG EC tablet Take 1 tablet (81 mg) by mouth 1 (one) time each day. Active potassium chloride ER (Micro-K) 10 MEQ ER capsule Take 2 capsules (20 mEq) by mouth 1 (one) time each day. Do not crush or chew. Active Multiple Vitamins-Minera ls (Multivitamin Womens 50+ Adv) tablet Take 1 tablet by mouth 1 (one) time each day. Active atorvastatin (Lipitor) 10 MG tablet 12/18/2022 Active Active Problems Problem Noted Date Diagnosed Date Hyponatremia 01/08/2023 Overview (01/08/2023): Latest Reference Range & Units 01/06/23 11:07 01/07/23 00:18 Sodium 136 - 145 mmol/L 140 132 (L) (L): Data is abnormally low BMP Na 134 (L) Cl 102 BUN 12 Glu 116 (H) K 3.9 Co2 19 (L) Cr 0.68 Stable Continue daily lab assessment Anemia 01/08/2023 Overview (01/08/2023): Latest Reference Range & Units 01/06/23 11:07 01/07/23 00:18 Hemoglobin 11.2 - 15.7 g/dL 9.9 (L) 8.8 (L) Hematocrit 34.0 - 45.0 % 30.3 (L) 26.9 (L) Platelet Count 155 - 369 10*3/uL 198 171 Continue serial lab assessment. Consider transfusion if Hgb less than 7. May require iron, folate, B12 supplementation as appropriate. HTN (hypertension) 01/07/2023 Overview (01/08/2023): Home meds resumed Lasix 40mg held Metoprolol 100 mg XL Ordered as 50 mg BID hold fory systolic less than 100 mmhg Spironolactone 50mg held Potassium 20 mEq held Held 2/2 symptomatic hypotensions Continue hourly BP monitoring Hyperlipidemia 01/07/2023 Overview (01/07/2023): Resumed home meds -Atorvastatin 40mg Hypothyroid 01/07/2023 Overview (01/07/2023): Resumed home meds -Levothyroxine 75 mcg Dementia 01/07/2023 Overview (01/08/2023): home meds - memantine ER 28 mg NOT ON FORMULARY Anxiety and depression 01/07/2023 Overview (01/08/2023): Resumed home meds - Vraylar 3mg NOT ON FORMULARY -Xanax 1mg (currently on 0.5 mg for low BP) -Amitriptyline 10mg -Lexapro 20mg -Mirtazapine 45 mg GERD (gastroesophageal reflux disease) Overview (01/07/2023): Resumed home meds - Protonix 40mg CAD (coronary artery disease) 01/07/2023 Overview (01/08/2023): Resumed home meds -Plavix 75 mg -Aspirin 81 mg - Metoprolol 100 mg XL ordered as 50 mg BID hold for systolic blood pressrue less than 100 mmhg Postprocedural hypotension 01/07/2023 Overview (01/08/2023): Added phenylephrine gtt and 1L NS bolus Midodrine 10 mg TID wean drip as able MAP goal >65 Encourage PO hydration Urinary retention 01/07/2023 Overview (01/08/2023): I&O cath x1 Added flomax Nursing order for OOB to void Patient voided 500 mL Resolved Continue to monitor Class 2 obesity in adult 01/07/2023 Overview (01/07/2023): BMI: 36.44 Complicates all aspects of care. Symptomatic stenosis of left carotid artery 08/2022 Overview (01/08/2023): 01/[address] Curtis -Continue aspirin, plavix, and atorvastatin. -Continue close assessment of blood pressure with goal SBP 120-140 -Midodrine 10 mg TID -Wean phenylephrine to off -No heavy lifting (greater than 5 pounds) for four weeks post op. -Patient encouraged to increase activity as tolerated (PT/OT assessment as applicable). -Patient will follow up with vascular surgery in four weeks with bilateral carotid duplex. Family History Medical History Relation Name Comments Anesthesia problems Neg Hx Malig Hyperthermia Neg Hx Social History Tobacco Use Types Packs/Day Years Used Date Smoking Tobacco: Former Cigarettes Q uit: 1996 Passive Smoke Exposure: Past Smokeless Tobacco: Never Tobacco Cessation:Counseling Given: Not Answered Alcohol Use Standard Drinks/Week Comments Never 0 (1 standard drink = 0.6 oz pur e alcohol) Comments No Sex and Gender Information Value Date Recorded Sex Assigned at Female 11/11/2022 2:21 PM EDT Legal Sex Female 6:05 PM EDT Gender Identity Female 11/11/2022 2:21 PM EDT Sexual Orientation Not on file Last Filed Vital Signs Vital Sign Reading Time Taken Comments Blood Pressure 170/100 02/24/2023 2:46 PM EDT Pulse 65 02/24/2023 2:46 PM EDT Temperature 36.1 C (97 F) 02/24/2023 2:44 PM EDT Respiratory Rate 18 02/24/2023 2:44 PM EDT Oxygen Saturation 98% 01/10/2023 1:00 PM EDT Inhaled Oxygen Concentration - - Weight 108 kg (238 lb 5.1 oz) 02/24/2023 2:44 PM EDT Height 160 cm (5' 3 ) 02/24/2023 2:44 PM EDT Body Mass Index 42.22 02/24/2023 2:44 PM EDT Plan of Treatment Health Maintenance Due Date Last Done Comments [facility]-Bone Density Scan 1945 [facility]-Depression Screening 1945 [facility]-Hepatitis C Screening 1945 [facility]-Medicare Annual Wellness (AWV) 1945 [facility]-Infant/Child/Adol SDOH Screenings 1945 [facility]- SDOH Screenings 1965 [facility]-Adult SDOH Screenings 1965 [facility]-Zoster Vaccines (1 of 2) 1997 [facility]-DTaP,Tdap,and Td Vaccines (1 - Tdap) 06/04/2019 06/03/2019 [facility]-RSV Vaccine: 60+ Years or (1 - 1-dose 75+ series) 2022 [id number] Vaccine ( - season) 2024 10/31/2020, 10/03/2020 [facility]-Influenza Vaccine (Season Ended) 2025 08/03/2023, 04/28/2022, 07/01/2021, Additional history exists [facility]-Pneumococcal Vaccine: 50+ Years Completed 05/27/2018, 12/30/2016 [facility]-Obesity Intervention Completed 02/24/2023, 08/2022 HPV Vaccines Aged Out No longer eligi ble based on patient's age to complete this topic [facility]-HIB Vaccines Aged Out No longer e ligible based on patient's age to complete this topic [facility]-Hepatitis A Vaccines Aged Out No longer eligible based on patient's age to complete this topic [facility]-IPV Vaccines Aged Out No longer e ligible based on patient's age to complete this topic [facility]-Rotavirus Vaccines Aged Out No lo nger eligible based on patient's age to complete this topic Medical Devices Implanted Type Area Merry Go Round Attendant Device Identifier Shelf Expiration Date Model / Serial / Lot Stent Transcarotid System 7mm X 30mm - [id number] Implanted:Qty: 1 on 01/06/2023 by Asif Curtis MD at [facility] Left: Carotid [id number] 11/07/2023 [id number] / / [id number] Insurance [employer] MEDICARE Advance Directives * Full Code (Latest Code Status on File) Date Activated Date Inactivated Comments 01/06/2023 10:29 AM 01/10/2023 6:16 PM Question Answer Comments Patient has decision-making capacity? Yes Care Teams Construction Equipment Technician Relationship Specialty Start Date End Date Alis Umana, TON [address] [place] [address] PCP - General 11/11/22
--- NOTE | 2025-01-26 14:30 | CA_ITS ---
FINAL REPORT CLINICAL HISTORY: HTN, hyperlipidemia, previous smoker, hx CABG, previous left endarterectomy, dizziness, hx TIA 2 years ago FINDINGS: The peak systolic velocity of the right common carotid artery is 83 cm/s. The peak systolic velocity of the right internal carotid artery is 172 cm/s and end diastolic velocity 53 cm/s. The ICA/CCA ratio is 2.3. A mild to moderate amount of plaque is present. The right external carotid artery is patent. The right vertebral artery is patent with antegrade flow. The peak systolic velocity of the left common carotid artery is 79 cm/s. The peak systolic velocity of the left internal carotid artery is 94 cm/s and end diastolic velocity 26 cm/s. The ICA/CCA ratio is 1.2. A mild amount of plaque is present. The left external carotid artery is patent.The left vertebral artery is patent with antegrade flow. IMPRESSION: 50-69% right carotid stenosis. Less than 50% left carotid stenosis. Bilateral patent vertebral arteries with antegrade flow. If indicated, CTA or MRA could further evaluate. Reviewed, Interpreted and Dictated by Jessica London MD Transcribed by Kellie Lam Authenticated and [facility]
== END 2025-01-26 23:59 | disposition home or self-care (01) ==
LOC: RT 14:06
PROVIDERS: PCP Nurse Practitioner Family; Visit Provider Physician Assistant
DX: I65.23 Occlusion and stenosis of bilateral carotid arteries (principal); I25.10 Atherosclerotic heart disease of native coronary artery without angina pectoris; I10 Essential (primary) hypertension; E78.5 Hyperlipidemia, unspecified; Z95.1 Presence of aortocoronary bypass graft; Z87.891 Personal history of nicotine dependence; Z98.890 Other specified postprocedural states
CPT/HCPCS: 93880